=== PATIENT | female | born 1950 | race Caucasian/White ===

== ENCOUNTER → 2023-08-14 07:21 | Outpatient (REF) | payer MEDICARE, SELFPAY | LOC: MRI 07:21 | PROVIDERS: ATTENDING PHYSICIAN Psychiatry & Neurology Neurology; FAMILY PHYSICIAN Internal Medicine | DX: R41.0 Disorientation, unspecified (principal); Z86.73 Personal history of transient ischemic attack (TIA), and cerebral infarction without residual deficits | CPT/HCPCS: 70553; A9575 ==

== ENCOUNTER → 2023-09-25 10:46 | Outpatient (REF) | payer MEDICARE, SELFPAY ==
--- NOTE | 2023-09-25 12:58 | EEG.RPT ---
Electroencephalogram Report
Recording
Date of EE09/25/23
Type of EEG: Routine
Length of EEG recordin minutes
Done with Video Recording: Yes
Patient Status: Outpatient
Recording Conditions: Awake, Drowsy and Asleep
Hyperventilation Performed: No
Photic Stimulation Performed: Yes
Report
GREATER THAN 1 HOUR EEG REPORT
EEG INTERPRETATION:
Unremarkable EEG for age
CLINICAL CORRELATION:
A normal EEG does not rule out a diagnosis of epilepsy. If clinical suspicion for seizure persists, a prolonged recording may be warranted.
Clinical correlation is advised.
METHODS:
A 21 channel digitized electroencephalogram (EEG) was performed in the [facility]. The 10/20 international system of electrode placement was used with ECG and lateral/vertical eye movements recorded. Persyst quantitative EEG
analysis was performed.
ELECTROENCEPHALOGRAPHER IMPRESSION(S):
Quality of study
Good
Background
Unremarkable, well maintained, medium amplitude alpha-frequency and unremarkable anterior-posterior voltage gradient
With eye opening the background activity changed to a low voltage mixture of frequencies.
Sleep
Drowsiness present
Stage 1 sleep briefly demonstrated
Hyperventilation
Did not activate the record
Photic Stimulation
Did not activate the record
ECG
Normal sinus rhythm
== END ==
LOC: RCS 10:46
PROVIDERS: ATTENDING PHYSICIAN Psychiatry & Neurology Neurology; FAMILY PHYSICIAN Internal Medicine
DX: R41.0 Disorientation, unspecified (principal)
CPT/HCPCS: 95813

== ENCOUNTER → 2024-01-31 12:53 | Outpatient (REF) | payer MEDICARE, SELFPAY | LOC: WDC 12:53 | PROVIDERS: ATTENDING PHYSICIAN Obstetrics & Gynecology; FAMILY PHYSICIAN Internal Medicine | DX: Z12.31 Encounter for screening mammogram for malignant neoplasm of breast (principal) | CPT/HCPCS: 77063; 77067 ==

== ENCOUNTER → 2024-07-08 06:17 | Day surgery (SDC) | payer MEDICARE, SELFPAY | LOC: GI 06:17 | PROVIDERS: ATTENDING PHYSICIAN Internal Medicine Gastroenterology | PROC: 0DBM8ZX Excision of Descending Colon, Via Natural or Artificial Opening Endoscopic, Diagnostic (ICD-10-PCS; 2024-07-08) | PROC: 0DJ08ZZ Inspection of Upper Intestinal Tract, Via Natural or Artificial Opening Endoscopic (ICD-10-PCS; 2024-07-08) | DX: Z12.11 Encounter for screening for malignant neoplasm of colon (principal); D12.4 Benign neoplasm of descending colon; Z86.0100 Personal history of colon polyps, unspecified; Z85.048 Personal history of other malignant neoplasm of rectum, rectosigmoid junction, and anus; K57.30 Diverticulosis of large intestine without perforation or abscess without bleeding; K21.00 Gastro-esophageal reflux disease with esophagitis, without bleeding; K22.2 Esophageal obstruction; K44.9 Diaphragmatic hernia without obstruction or gangrene | CPT/HCPCS: 45380; 43235; 88305 ==

== ENCOUNTER 2024-10-06 11:03 | Emergency (ER) | payer MEDICARE, SELFPAY ==
[2024-10-06 11:06] VITALS: BP 128/69
[2024-10-06 11:43] VITALS: BMI 26.8
--- NOTE | 2024-10-06 12:24 | EDRN ---
Galileo ANDERSON in room w/ pt
--- NOTE | 2024-10-06 12:30 | ED.GENMED ---
History of Present Illness
General
Chief Complaint: Musculo-Skeletal Complaint
Source: patient
Exam Limitations: none
Time Seen by Provider: 10/06/24 12:17
History of Present Illness
History of Present Illness:
74yoF with a history of hyperlipidemia, prior L hip fracture s/p nail in 2013, and L knee replacement presenting for evaluation of left hip pain. Pain radiates to the lateral thigh and she states the area appears swollen. Symptoms began about 2
weeks ago. She reports wearing an orthotic in her R shoe and started having pain in her left hip shortly afterwards. She denies any trauma or other inciting incidents. Pain is worse with weight bearing. She was seen at urgent care a week and had
x-rays which were reportedly normal. She was started on a course of prednisone which she finished without any relief. She denies any fevers, calf pain, paresthesias.
Past History
Past History
ED Past Medical History: GERD, Other (osteoporosis, DJD, rectal cancer, gastric ulcer), Other (TIA) and Other (Migraines)
Social History
Tobacco: Non-smoker
Personal:
Living: with family
Phy Exam
General Physical Exam
General Presentation: well appearing and no apparent distress
General Skin: warm and dry
General Habitus: normal
General Mental: alert
ENT Exam
ENT Exam: normocephalic
Neurological Exam
Neurological Exam: alert
[place] Coma Scale
Eye Opening: Spontaneous
Verbal Response: Oriented
Motor Response: Obeys Commands
GCS Total Score: 15
Musculoskeletal Exam
Musculoskeletal Exam: other (L hip: There does appear to be some soft tissue swelling in the lateral hip region. No tenderness to palpation. ROM is normal although flexion elicits pain. No calf tenderness, pitting edema, or clinical signs of DVT. 2+
DP pulse and sensation intact.)
Skin Exam
Skin Exam: normal color and warm/dry
Psychiatric Exam
Psychiatric Exam: normal mood/affect
Course
Orders/Labs/Results
Orders:
Orders
10/06/24 12:28
CT Pelvis W/o Iv Contrast Urgent
Comment:
Reason For Exam: L hip pain, swelling
CR Femur - Left Min 2 Vw Urgent
Comment:
Reason For Exam: pain
10/06/24 14:34
Basic Metabolic Panel Urgent
Complete Blood Count/With Diff Urgent
10/06/24 15:16
Ketorolac [Toradol] 15 mg IV NOW STA
Abnormal Lab Results
10/06/24
14:34
Abs Immat Gran (auto) 0.1 H 10^3/uL
(0-0.05)
Absolute Neuts (auto) 6.9 H 10^3/uL
(1.4-6.5)
Absolute Monos (auto) 1.2 H 10^3/uL
(0.1-0.6)
Immature Gran % 0.7 H %
(0-0.5)
Lymphocytes % 18.9 L %
(20.5-51.1)
Monocytes % 11.5 H %
(1.7-9.3)
BUN 27 H mg/dl
(7-17)
10/06/24 14:34
10/06/24 14:34
Vital Signs
Initial and Last Documented VS:
Initial Vital Signs
Temp Pulse Resp BP Pulse Ox
97.8 F 85 16 128/69 98
10/06/24 11:06 10/06/24 11:06 10/06/24 11:06 10/06/24 11:06 10/06/24 11:06
Last Documented Vital Signs
Temp Pulse Resp BP Pulse Ox
97.8 F 80 16 135/77 98
10/06/24 11:06 10/06/24 14:00 10/06/24 14:00 10/06/24 14:00 10/06/24 14:00
MDM/Problems Addressed
Differential Diagnosis Includes:
74yoF here with atraumatic L hip pain x 2 weeks. Also feels the area is swollen. Finished prednisone without relief. Prior hx of L hip fracture with nail placement in 2013. VSS. She is well appearing in no distress. There does appear to be some soft
tissue swelling laterally. LLE is neurovascularly intact. Differential diagnosis includes but is not limited to: bursitis, effusion, fracture, osteoarthritis, no clinical signs of DVT
Initial ED plan: Check femur x-rays and CT pelvis.
*Critical Care Note
Total Time (30-74mins, 75-104mins- exclusive of procedures): Not Applicable
Update Note
Update Note:
CT shows probable reactive sterile fluid collection adjacent to the left hip measuring 7.1 x 6.2 x 8.4 cm. Labs added and white count is normal. There is no overlying erythema, warmth, or fluctuance so low clinical suspicion for infection. Advised
naproxen BID and close f/u with orthopedics. ED return precautions reviewed including fevers. Patient in agreement with plan and was discharged in stable condition.
ED Attending Note
-
Portions of this chart may have been created with voice recognition software.� Occasional wrong word or��sound alike� substitutions may have occurred due to the inherent limitations of voice recognition software.
Discharge Plan
Departure
Patient Disposition: Home (Routine Discharge)
Date of Disposition: 10/06/24
Time of Disposition: 15:16
Patient with high blood pressure during this ER visit?: No
Discharge Problem:
Acute pain of left hip
Instructions: Hip pain in adults
Prescriptions:
No Action
nadolol [Corgard] 20 MG tablet
20 mg PO .EVERYOTHERDAY
Patient Comments:
pt took only 10 mg last night
calcium carbonate [calcium] 500 MG tablet
1,500 mg PO DAILY
ascorbic acid (vitamin C) [Vitamin C] 500 MG tablet
500 mg PO DAILY
duloxetine 20 MG capsule,delayed release(DR/EC)
40 mg PO HS
cholecalciferol (vitamin D3) 1,000 UNITS tablet
1,000 units PO DAILY
aspirin 81 MG tablet,chewable
81 mg PO DAILY
atorvastatin 40 MG tablet
40 mg PO QPM
bupropion HCl 150 MG tablet extended release 24 hr
150 mg PO DAILY
pantoprazole [Protonix] 20 MG tablet,delayed release (DR/EC)
40 mg PO DAILY AT 0700 30 Days Qty: 30 0RF
Referrals:
Kenia Lundberg MD [Family Provider] -
Peter Carrasco MD [Active] -
Activity Restrictions/Additional Instructions:
Take 2 Aleve twice a day as needed for pain.
Please call tomorrow to schedule a follow-up with orthopedics. Return to the ER with any worsening symptoms including fevers.
Interventions
Interventions:
*Risk Screen - Suicide Last Done: 10/06/24 11:06
*General Assessment Last Done: 10/06/24 11:44
*Neglect/Abuse Screening Last Done: 10/06/24 11:06
*ED- Fall Risk Assessment Last Done: 10/06/24 11:44
*ED COVID-19 Vaccine History Last Done: 10/06/24 11:44
*Nursing Disposition Last Done: 10/06/24 15:33
ED-Musculoskeletal Assessment Last Done: 10/06/24 11:46
Discharge Date and Time
Discharge Date/Time: 10/06/24 15:34
Print Language: PANAMANIAN
[2024-10-06 12:32] VITALS: BP 118/75
--- NOTE | 2024-10-06 13:50 | EDRN ---
Pt to BR in w/c at this time w/ assist on and off toilet.
[2024-10-06 14:00] VITALS: BP 135/77
--- NOTE | 2024-10-06 14:24 | EDRN ---
Galileo ANDERSON in room w/pt.
--- NOTE | 2024-10-06 14:36 | EDRN ---
Labs drawn and sent to lab at this time.
[2024-10-06 14:48] LABS: % Basophils 0.4 % (0-2); % Immature Granulocytes 0.7 % (0-0.5); % Lymphocytes 18.9 % (20.5-51.1); % Monocytes 11.5 % (1.7-9.3); % Neutrophils 65.5 % (42.2-75.2); Absolute Eosinophils 0.3 10^3/uL (0-0.7); Absolute Immature Granulocytes 0.1 10^3/uL (0-0.05); Absolute Monocytes 1.2 10^3/uL (0.1-0.6); Absolute Neutrophils 6.9 10^3/uL (1.4-6.5); Hematocrit 39.6 % (37.0-47.0); Hemoglobin 13.4 g/dL (12.0-16.0); Mean Corp Hgb Conc. 33.8 g/dL (33.0-37.0); Mean Corpuscular Volume 88.8 fL (81.0-99.0); Mean Platelet Volume 9.4 fL (7.4-10.4); Nucleated Red Blood Cells % 0 %; Platelet Count 231 10^3/uL (130-400); Red Blood Cell Count 4.46 10^6/uL (4.20-5.40); Red Cell Dist. Width 14.2 % (11.5-14.5); White Blood Cell Count 10.5 10^3/uL (4.8-10.8)
[2024-10-06 15:01] LABS: Blood Urea Nitrogen 27 mg/dl (7-17); Calcium 8.4 mg/dl (8.4-10.2); Carbon Dioxide 24 mmol/L (22-30); Chloride 105 mmol/L (98-107); Estimated Creatinine Clearance 43 ml/min; Glucose 80 mg/dl (70-99); Potassium 3.8 mmol/L (3.5-5.1); Sodium 137 mmol/L (135-145); eGFR 59.49
[2024-10-06] MEDS: TORADOL 15 MG IV (15:20)
== END 2024-10-06 15:34 | disposition home or self-care (01) ==
LOC: EMR 11:03
PROVIDERS: Physician Assistant; EMERGENCY PHYSICIAN Emergency Medicine; FAMILY PHYSICIAN Internal Medicine
DX: M25.552 Pain in left hip (principal); E78.5 Hyperlipidemia, unspecified; M81.0 Age-related osteoporosis without current pathological fracture; Z85.048 Personal history of other malignant neoplasm of rectum, rectosigmoid junction, and anus; Z86.73 Personal history of transient ischemic attack (TIA), and cerebral infarction without residual deficits; Z87.11 Personal history of peptic ulcer disease; Z96.652 Presence of left artificial knee joint; Z87.81 Personal history of (healed) traumatic fracture
CPT/HCPCS: 96374; 99284; 72192; 73552; 80048; 85025

== ENCOUNTER → 2024-10-10 13:06 | Outpatient (REF) | payer MEDICARE, SELFPAY ==
[2024-10-10 13:37] VITALS: BP 109/70; BP_SYST 86
[2024-10-10] MEDS: TYLENOL 1000 MG PO (14:03)
[2024-10-10 14:36] VITALS: BP 126/73; BP_SYST 80
== END ==
LOC: RADI 13:06
PROVIDERS: ATTENDING PHYSICIAN Physician Assistant; FAMILY PHYSICIAN Internal Medicine
DX: M79.605 Pain in left leg (principal)
CPT/HCPCS: 20611; 87015; 87070; 87205

== ENCOUNTER 2024-10-14 09:19 | Inpatient (IN) | payer MEDICARE, SELFPAY ==
[2024-10-11 11:54] VITALS: BP 129/95
[2024-10-11 12:39] VITALS: BMI 24.3
[2024-10-11 13:33] LABS: % Basophils 0.1 % (0-2); % Immature Granulocytes 0.7 % (0-0.5); % Monocytes 3.2 % (1.7-9.3); Absolute Immature Granulocytes 0.1 10^3/uL (0-0.05); Absolute Lymphocytes 0.6 10^3/uL (1.2-3.4); Absolute Monocytes 0.5 10^3/uL (0.1-0.6); Absolute Neutrophils 13.6 10^3/uL (1.4-6.5); Hematocrit 40.7 % (37.0-47.0); Hemoglobin 13.6 g/dL (12.0-16.0); Mean Corp Hgb Conc. 33.4 g/dL (33.0-37.0); Mean Corpuscular Hgb 29.6 pg (27.0-31.0); Mean Corpuscular Volume 88.7 fL (81.0-99.0); Nucleated Red Blood Cells % 0 %; Platelet Count 255 10^3/uL (130-400); Red Blood Cell Count 4.59 10^6/uL (4.20-5.40); Red Cell Dist. Width 14.5 % (11.5-14.5); White Blood Cell Count 14.8 10^3/uL (4.8-10.8)
[2024-10-11 13:51] LABS: ALT (SGPT) 16 U/L (0-35); AST (SGOT) 23 U/L (14-36); Albumin 3.6 g/dl (3.5-5.0); Alkaline Phosphatase 77 U/L (38-126); Blood Urea Nitrogen 21 mg/dl (7-17); Calcium 8.8 mg/dl (8.4-10.2); Carbon Dioxide 25 mmol/L (22-30); Chloride 108 mmol/L (98-107); Estimated Creatinine Clearance 47 ml/min; Glucose 112 mg/dl (70-99); Potassium 4.5 mmol/L (3.5-5.1); Sodium 138 mmol/L (135-145); Total Bilirubin 0.6 mg/dl (0.2-1.3); Total Protein 6.6 g/dl (6.3-8.2); eGFR > 60.00
[2024-10-11 13:56] LABS: Erythrocyte Sed Rate 29 mm/hour (0-20)
[2024-10-11] MEDS: DILAUDID 1 MG IV (13:57)
[2024-10-11 14:01] VITALS: BP 135/73
--- NOTE | 2024-10-11 14:57 | ED.GENMED ---
History of Present Illness
General
Chief Complaint: Musculo-Skeletal Complaint
Source: patient and spouse
Exam Limitations: none
Time Seen by Provider: 10/11/24 12:15
Nursing documentation reviewed up to this point in time: agreed with
History of Present Illness
History of Present Illness:
74-year-old female past medical history of previous stomach ulcers, GERD previous stroke presenting to the emergency department today with concerns of left-sided hip discomfort that has become very severe today. Was recently diagnosed with a fluid
collection to previous surgical site of her left leg was seen by interventional radiology and had this drained yesterday. Initially felt well but this morning with worsening pain. Pain is severe enough that she had difficulty ambulating and moving
at all from the left hip. Denies any fevers or systemic symptoms. She has been on steroids without relief
Past History
Past History
ED Past Medical History: GERD, Other (osteoporosis, DJD, rectal cancer, gastric ulcer), Other (TIA) and Other (Migraines)
Social History
Tobacco: Non-smoker
Personal:
Living: with family
Review of Systems
Review of Systems
Allergies reviewed?: Yes
All Other Systems: ROS reviewed and negative except as documented in HPI and ROS
Phy Exam
Physical Exam
Physical Exam:
GENERAL: Alert , in no apparent distress
EYE: pupils equal and reactive
NECK: Supple, no significant adenopathy.
ENT: o/p clr, mmm.
CARDIAC: Regular rate and rhythm .
LUNGS: Clear breath sounds bilaterally, no acute respiratory distress, no wheezes/rales/rhonchi
ABDOMEN: Soft, without focal tenderness, no r/g, no cvat
NEUROLOGICAL: Alert and oriented, no focal neuro deficits
SKIN: Warm and dry, skin intact.
MUSCULOSKELETAL: Significant discomfort to the left hip when trying to move. No redness or warmth no tenderness to palpation no edema, well perfused.
PSYCH: Normal and appropriate interaction.
Course
Orders/Labs/Results
Orders:
Orders
10/11/24 12:13
HYDROmorphone [Dilaudid] 1 mg IV NOW STA
10/11/24 12:43
CBC/With Diff [Complete Blood Count/With Diff] Urgent
CMP [Comprehensive Metabolic Panel] Urgent
CRP [C-Reactive Protein] Urgent
ESR [Erythrocyte Sed Rate] Urgent
Lactic Acid Urgent
Abnormal Lab Results
10/11/24
12:43
WBC 14.8 H 10^3/uL
(4.8-10.8)
Abs Immat Gran (auto) 0.1 H 10^3/uL
(0-0.05)
Absolute Neuts (auto) 13.6 H 10^3/uL
(1.4-6.5)
Absolute Lymphs (auto) 0.6 L 10^3/uL
(1.2-3.4)
Immature Gran % 0.7 H %
(0-0.5)
Neutrophils % 92.0 H %
(42.2-75.2)
Lymphocytes % 4.0 L %
(20.5-51.1)
ESR 29 H mm/hour
(0-20)
Chloride 108 H mmol/L
(98-107)
BUN 21 H mg/dl
(7-17)
Glucose 112 H mg/dl
(70-99)
C-Reactive Protein 14.80 H mg/L
(0.0-10.00)
10/11/24 12:43
10/11/24 12:43
Vital Signs
Initial and Last Documented VS:
Initial Vital Signs
Temp Pulse Resp BP Pulse Ox
97.9 F 83 18 129/95 99
10/11/24 11:54 10/11/24 11:54 10/11/24 11:54 10/11/24 11:54 10/11/24 11:54
Last Documented Vital Signs
Temp Pulse Resp BP Pulse Ox
97.9 F 75 17 135/73 95
10/11/24 11:54 10/11/24 14:01 10/11/24 14:01 10/11/24 14:01 10/11/24 14:01
MDM/Problems Addressed
MDM/Problems Addressed:
74-year-old female presenting to the emergency department today with concerns of left hip pain becoming severe today. Vital signs normal. White count of 14.8 though the patient is on steroids unclear if this could represent acute infection or just
secondary to steroid use otherwise no specific findings on exam other than elevated inflammatory markers. Plan to admit for Ortho consultation. Patient requiring IV pain medications.
*Critical Care Note
Total Time (30-74mins, 75-104mins- exclusive of procedures): Not Applicable
ED Attending Note
-
Portions of this chart may have been created with voice recognition software.� Occasional wrong word or��sound alike� substitutions may have occurred due to the inherent limitations of voice recognition software.
Discharge Plan
Departure
Patient Disposition: Admit
Date of Disposition: 10/11/24
Time of Disposition: 15:02
Admit to: Med/Surg
Admit to doctor: Ana
Presentation/result/management discussed w/ accepting MD/DO: Hospitalist
Patient with high blood pressure during this ER visit?: No
Condition: Good
Covid-19: Not Applicable
Discharge Problem:
Acute hip pain
Prescriptions:
No Action
nadolol [Corgard] 20 MG tablet
20 mg PO .EVERYOTHERDAY
Patient Comments:
pt took only 10 mg last night
calcium carbonate [calcium] 500 MG tablet
1,500 mg PO DAILY
ascorbic acid (vitamin C) [Vitamin C] 500 MG tablet
500 mg PO DAILY
duloxetine 20 MG capsule,delayed release(DR/EC)
40 mg PO HS
cholecalciferol (vitamin D3) 1,000 UNITS tablet
1,000 units PO DAILY
aspirin 81 MG tablet,chewable
81 mg PO DAILY
atorvastatin 40 MG tablet
40 mg PO QPM
bupropion HCl 150 MG tablet extended release 24 hr
150 mg PO DAILY
pantoprazole [Protonix] 20 MG tablet,delayed release (DR/EC)
40 mg PO DAILY AT 0700 30 Days Qty: 30 0RF
Referrals:
Kenia Lundberg MD [Family Provider] -
Interventions
Interventions:
*Risk Screen - Suicide Last Done: 10/11/24 11:54
*General Assessment Last Done: 10/11/24 11:54
*Neglect/Abuse Screening Last Done: 10/11/24 11:54
*ED- Fall Risk Assessment Last Done: 10/11/24 11:54
*ED COVID-19 Vaccine History Last Done: 10/11/24 11:54
ED-Musculoskeletal Assessment Last Done: 10/11/24 14:01
Discharge Date and Time
Print Language: URUGUAYAN
--- NOTE | 2024-10-11 15:51 | HPS.HSE ---
Family Physician
-
Family Physician: Kenia Lundberg
Chief Complaint
-
Left Hip Pain
History of Present Illness
Patient is a 74 y/o female past medical history of prior stroke, anxiety/depression, osteoporosis with prior bilateral femur fractures with hardware who presents with left hip pain. Patient reports ongoing left pain for the past several week. She
completed a Medrol Dose Pack in early September. Afterwards she was in the ED on October 06 at which time she was found to have an extra-articular fluid collection. She underwent drainage of the fluid collection IR yesterday. Fluid culture was sent with
no growth at present time. Patient continues with significant left hip pain with inability to ambulate due to the pain. She denies fevers, sweats or chills.
Medical History
Past Medical History
Past Medical History: Reports Other
Additional Past Medical History:
Left Basal Ganglia Capsular Lacunar Infarct
Anxiety / Depression
Migraine Headache
Hyperlipidemia
GERD/PUD
Osteoporosis
Rectal Cancer s/p Resection, Chemo/Radiation
Past Surgical History: Reports Other
Additional Past Surgical History:
Bilateral Femur Fracture Repair
Left Knee Replacement
Right Rotator Cuff Repair
Resection Rectal Cancer
Social History
Tobacco: Non-smoker
Alcohol: Occasional
Personal:
Living: With Family
Family History
Family History: Not pertinent
Allergies / Home Medications
Allergies reflects when Allergies were last updated in [facility].
Home Medications with original date entered in [facility]
Allergy/Medication List:
Allergies
Allergy/AdvReac Type Severity Reaction Status Date / Time
No Known Allergies Allergy Verified 10/06/24 11:09
Home Medications
ascorbic acid (vitamin C) 500 mg tablet (Vitamin C) 500 mg PO DAILY Supplement 12/24/13
cholecalciferol (vitamin D3) 25 mcg (1,000 unit) tablet 1,000 units PO DAILY Supplement 12/24/13
aspirin 81 mg chewable tablet 81 mg PO DAILY Blood clot prevention/tx 03/08/20
atorvastatin 40 mg tablet 40 mg PO QPM High cholesterol 03/08/20
Lactobac no.2-Bifidobac no.1-S. thermo 112.5 billion cell capsule (Visbiome) 1 cap PO DAILY 10/11/24
acetaminophen 500 mg tablet (Tylenol Extra Strength) 1,000 mg PO Q6HPRN PRN mild pain 10/11/24
bupropion HCl 300 mg 24 hr tablet, extended release (Wellbutrin XL) 300 mg PO DAILY 10/11/24
calcium carbonate 500 mg PO DAILY 10/11/24
duloxetine 30 mg capsule,delayed release (Cymbalta) 30 mg PO HS 10/11/24
omeprazole 20 mg tablet,delayed release 40 mg PO HS 10/11/24
prednisone 10 mg tablet 40 mg PO DIRECTED 10/11/24
Review of Systems
-
History Source: Patient
A 12 point ROS was completed and negative except as noted: Yes
Constitutional: Denies Fever or Chills
Respiratory: Denies Cough or Trouble Breathing
Cardiac: Denies Chest Pain or Palpitations
Abdomen/GI: Denies Abdominal Pain, Nausea, Vomiting, Diarrhea or Constipated
Musculoskeletal: Reports See HPI
Physical Exam
Vital Signs
Vital Signs
Temp Pulse Resp BP Pulse Ox
97.9 F 75 17 135/73 95
10/11/24 11:54 10/11/24 14:01 10/11/24 14:01 10/11/24 14:01 10/11/24 14:01
Physical Exam
General: Well Developed, Well Nourished and No Apparent Distress
HEENT: NormoCephalic, Anicteric, Moist mucous membranes and Atraumatic
Respiratory: Clear and Non Labored Respirations; No Wheezes, Rales or Rhonchi
Cardiac: S1/S2 and Regular Rhythm; No Murmur
GI: Soft, Non Tender, Non Distended and Normal Bowel Sounds
Rectal: Deferred by Provider
Musculoskeletal: No Clubbing, No Cyanosis and Other (Trace edema left lower extremity; Decreased range of motion due to pain)
Skin: Warm and Dry; No Rash
Neuro: Awake, Alert, Oriented and Nonfocal/grossly intact
Psych: Calm
Laboratory Results
-
10/11/24 12:43
10/11/24 12:43
Laboratory Results
Lactic Acid 1.0 mmol/L (0.7-2.0) 10/11/24 12:43
Total Bilirubin 0.6 mg/dl (0.2-1.3) 10/11/24 12:43
AST 23 U/L (14-36) 10/11/24 12:43
ALT 16 U/L (0-35) 10/11/24 12:43
Alkaline Phosphatase 77 U/L (38-126) 10/11/24 12:43
Data Reviewed
-
Lab Data: Labs Reviewed by me
Old Records: Reviewed
Impression/Plan
-
Left Hip Pain with Ambulatory Dysfunction
-Consult Orthopedics
-Consult PT/OT
-Check Hip MRI
-Check Peripheral Vascular US
Hx Left Basal Ganglia Capsular Lacunar Infarct
-Continue Aspirin
-Hyperlipidemia
-Continue atorvastatin
Anxiety / Depression
-Continue duloxetine and Wellbutrin
GERD/PUD
-Continue Protonix
DVT proph: SCDs if US negative for DVT
Code Status: Full Code
--- NOTE | 2024-10-11 15:53 | W.PN.UPDATE ---
Addendum entered and electronically signed by Tamiko Perez MD 10/11/24 16:23:
Stop prednisone.
Original Note:
Update Note
Progress Note Update
This is an addendum to the H&P written by Debbie De 10/11/2024.� Patient seen examined independently with PA.
74-year-old female past medical history of bilateral femur fractures status post rods in 2013, rectal cancer, gastric ulcer, GERD, osteoporosis, TIA, migraines, anxiety/depression, presenting for left hip pain and ambulatory dysfunction.
She was here on 10/06 for left hip pain and found to have fluid collection adjacent to the left hip.� She underwent IR drainage of extra-articular fluid yesterday.� Pain is not improved.� Culture was negative.
She completed Medrol Dosepak on 09/29 and started prednisone taper on 10/08.
Vital signs normal.� Labs show leukocytosis.� CRP of 14.
Unclear etiology of left hip pain.� Fluid collection concerning for potential underlying hardware infection although fluid culture negative.
Orthopedics consulted and recommended MRI.� Venous ultrasound also pending.� Dilaudid for pain.
Leukocytosis likely from steroids.
[2024-10-11 17:07] VITALS: BP 133/61
--- NOTE | 2024-10-11 18:01 | PTCARENOTE ---
Received pt from ED via stretcher. AAOx3. Stretcher placed next to bed, pt able to slide over to bed independently. Pt c/o L hip pain, unable to bear weight on LLE. Assessed and oriented to room. Pt verbalized understanding of call baird. Call baird
within close reach. Will continue to monitor.
[2024-10-11 18:10] VITALS: BP 141/74
[2024-10-11] MEDS: TYLENOL 1000 MG PO (18:29)
[2024-10-11] MEDS: LIPITOR 40 MG PO (18:39)
[2024-10-11] MEDS: DILAUDID 0.25 MG IV ×2 (20:14→22:38)
[2024-10-11] MEDS: PROTONIX 40 MG PO (20:14)
[2024-10-11] MEDS: CYMBALTA DELAYED RELEASE 30 MG PO (20:14)
[2024-10-11 23:56] VITALS: BP 122/70
[2024-10-12] MEDS: DILAUDID 0.25 MG IV (04:07)
[2024-10-12] MEDS: TYLENOL 1000 MG PO ×3 (05:48→20:32)
[2024-10-12 07:00] LABS: Hematocrit 35.4 % (37.0-47.0); Hemoglobin 11.8 g/dL (12.0-16.0); Mean Corp Hgb Conc. 33.3 g/dL (33.0-37.0); Mean Corpuscular Hgb 29.2 pg (27.0-31.0); Mean Corpuscular Volume 87.6 fL (81.0-99.0); Mean Platelet Volume 9.1 fL (7.4-10.4); Platelet Count 257 10^3/uL (130-400); Red Blood Cell Count 4.04 10^6/uL (4.20-5.40); Red Cell Dist. Width 14.2 % (11.5-14.5)
[2024-10-12] MEDS: DILAUDID 0.5 MG IV ×2 (07:19→16:19)
[2024-10-12 07:23] LABS: Blood Urea Nitrogen 17 mg/dl (7-17); Calcium 8.6 mg/dl (8.4-10.2); Carbon Dioxide 27 mmol/L (22-30); Chloride 108 mmol/L (98-107); Estimated Creatinine Clearance 54 ml/min; Glucose 73 mg/dl (70-99); Potassium 3.9 mmol/L (3.5-5.1); Sodium 138 mmol/L (135-145); eGFR > 60.00
[2024-10-12 07:30] VITALS: BP 129/81
[2024-10-12] MEDS: LOW STRENGTH ASPIRIN 81 MG PO (08:37)
[2024-10-12] MEDS: VITAMIN C 500 MG PO (08:37)
[2024-10-12] MEDS: WELLBUTRIN XL (24 hour extended release) 150 MG PO (08:37)
[2024-10-12] MEDS: VISBIOME 1 CAP PO (08:37)
--- NOTE | 2024-10-12 09:45 | W.PN.UPDATE ---
Update Note
Progress Note Update
Full orthopedic consult dictated: Patient seen with Dr. Gutiérrez
Dx: Status post left hip gamma nail with advanced left hip osteoarthritis and left lateral hip pain
Plan: Patient has undergone left hip gamma nail under direction of Dr. Carrasco years ago. There has been progression of her hip osteoarthritis and there is also concerns that the hip screw may be penetrating the femoral head. She has been
experiencing significant swelling which underwent aspiration and thus far has been negative for infection. She is scheduled to undergo MRI to evaluate the hip. Defer weightbearing for now, conservative treatment for pain control and orthopedics to
follow-up once MRI completed.
--- NOTE | 2024-10-12 10:20 | W.PN.HOSP.TC ---
Today's Communication/Plan
-
Await MRI
Stop IV Dilaudid
Oxycodone as needed
Add Lovenox
Bowel regimen
Assessment / Plan
Assessment / Plan
Gen-AAOx3, NAD
HEENT-NC, AT, anicteric, clear oral mm
Neck-supple
CV-reg, no M, +S1/S2
Lungs-clear B/L
Abd-soft, NT, ND
Ext-no edema
Musculoskeletal-no cyanosis, clubbing
Skin-warm and dry
Neuro-grossly non-focal
Psych-calm, cooperative
Intractable left hip pain -suspect mechanical etiology. Her pain started 3 weeks ago when she used an orthotic in the right shoe but not the left. She subsequently went for a 2.5 mile walk and then developed severe left sided hip pain. Pain did
not improve with trial of steroids prior to admission.
Doubt we will find infection.
Left hip fluid collection noted on CT, MRI pending.
She underwent left hip fluid aspiration by IR on October 10, 105 cc of thin yellow fluid removed. Culture negative. Fluid collection was located lateral to the proximal left femur, up to 8.4 cm in diameter.
Will change IV Dilaudid to oxycodone as needed.
PT/OT when allowed to weight-bear.
Leukocytosis noted and suspect due to steroids.
History of stroke
Hyperlipidemia -atorvastatin.
Osteoporosis
GERD/peptic ulcer disease
Migraine headaches
Hx of rectal cancer
Full code
Anticipated Discharge: 24 - 48 hours
Subjective/Interval History
-
Date of Service: October 12, 2024
Patient seen and examined. Complaining of left lateral hip pain.
Objective Data
-
Labs:
Laboratory Results
10/12/24
06:17
WBC 11.0 H
Hgb 11.8 L
Hct 35.4 L
Plt Count 257
Sodium 138
Potassium 3.9
Chloride 108 H
Carbon Dioxide 27
BUN 17
Creatinine 0.7
Glucose 73
Calcium 8.6
Vital Signs:
Vital Signs
Temp Pulse Resp BP Pulse Ox
97.7 F 72 16 129/81 98
10/12/24 07:30 10/12/24 07:30 10/12/24 07:30 10/12/24 07:30 10/12/24 07:30
Review of Systems
-
History Source: Patient
All other systems: Reviewed and negative
[2024-10-12] MEDS: MIRALAX 17 GRAMS PO (11:37)
[2024-10-12] MEDS: ROXICODONE 5 MG PO (11:41)
[2024-10-12] MEDS: TORADOL 15 MG IV ×2 (15:07→22:32)
[2024-10-12 15:13] VITALS: BP 124/70
--- NOTE | 2024-10-12 16:34 | PTCARENOTE ---
Pt is alert and oriented x3. Pt complaining of frequent L hip pain, pain medication given per MAR with little to no releif. Dr. Cabral aware, one time order for dilaudid ordered and administered per JUL. Pt is an assist x1 OOB NWB L leg. Assists
self on and off the commode. VSS. Pt makes needs known. All needs are meet at this time. Call baird is within reach.
[2024-10-12] MEDS: LIPITOR 40 MG PO (17:08)
[2024-10-12] MEDS: LOVENOX 40 MG SC (17:09)
[2024-10-12] MEDS: ROXICODONE 10 MG PO (20:26)
[2024-10-12] MEDS: CYMBALTA DELAYED RELEASE 30 MG PO (20:27)
[2024-10-12] MEDS: PROTONIX 40 MG PO (20:27)
[2024-10-12 23:00] VITALS: BP 98/56
[2024-10-13] MEDS: ROXICODONE 10 MG PO ×5 (03:54→21:37)
[2024-10-13] MEDS: TYLENOL 1000 MG PO ×3 (03:54→18:41)
[2024-10-13 07:22] VITALS: BP 118/68
[2024-10-13] MEDS: TORADOL 15 MG IV ×3 (08:11→23:57)
[2024-10-13] MEDS: FLUSH (NSS) 2 FLUSH IV (08:12)
[2024-10-13] MEDS: MIRALAX PO (08:13)
[2024-10-13] MEDS: VISBIOME 1 CAP PO (08:13)
[2024-10-13] MEDS: WELLBUTRIN XL (24 hour extended release) 150 MG PO (08:13)
[2024-10-13] MEDS: VITAMIN C PO ×2 (08:13→12:28)
[2024-10-13] MEDS: LOW STRENGTH ASPIRIN 81 MG PO (08:13)
--- NOTE | 2024-10-13 09:39 | W.PN.HOSP.TC ---
Today's Communication/Plan
-
Continue analgesics
PT/OT
MRI
Assessment / Plan
Assessment / Plan
Gen-AAOx3, NAD
HEENT-NC, AT, anicteric, clear oral mm
Neck-supple
CV-reg, no M, +S1/S2
Lungs-clear B/L
Abd-soft, NT, ND
Ext-left lateral hip edema
Musculoskeletal-no cyanosis, clubbing
Skin-warm and dry
Neuro-grossly non-focal
Psych-calm, cooperative
Intractable left hip pain -suspect mechanical etiology. Her pain started 3 weeks ago when she used an orthotic in the right shoe but not the left. She subsequently went for a 2.5 mile walk and then developed severe left sided hip pain. Pain did
not improve with trial of steroids prior to admission.
Doubt we will find infection.
Left hip fluid collection noted on CT, MRI partial scan completed October 12 showing 6.8 x 5.9 cm fluid collection lateral to the left hip. She will go down today to complete the scan.
She underwent left hip fluid aspiration by IR on October 10, 105 cc of thin yellow fluid removed. Culture negative. Fluid collection was located lateral to the proximal left femur, up to 8.4 cm in diameter.
Will change IV Dilaudid to oxycodone as needed. IV Toradol as needed.
PT/OT when allowed to weight-bear.
Leukocytosis noted and suspect due to steroids.
History of stroke
Hyperlipidemia -atorvastatin.
Osteoporosis
GERD/peptic ulcer disease
Migraine headaches
Hx of rectal cancer
Full code
Anticipated Discharge: Within 24 hours
Subjective/Interval History
-
Date of Service: October 13, 2024
Patient seen and examined. Pain around the left hip somewhat better today.
Objective Data
-
Vital Signs:
Vital Signs
Temp Pulse Resp BP Pulse Ox
97.8 F 82 17 118/68 97
10/13/24 07:22 10/13/24 07:22 10/13/24 07:22 10/13/24 07:22 10/13/24 07:22
I&O
10/12/24 10/13/24 10/14/24
06:59 06:59 06:59
Intake Total 1140 / 1140
Balance 1140 / 1140
Review of Systems
-
History Source: Patient
All other systems: Reviewed and negative
--- NOTE | 2024-10-13 11:08 | W.PN.UPDATE ---
Update Note
Progress Note Update
Patient seen and examined this AM. MRI interrupted yesterday and not a full study. Patient complaining of left buttock and lateral hip pain. No fevers. Working with PT today. I explained that I am uncertain as to the etiology of her symptoms
and sterile fluid collections about the left proximal hip. Will discuss with our hip specialists. Infection seems unlikely with no growth from IR aspiration yielding 100 cc of fluid. Arthritis is present on the radiographs but not much fluid in
the joint unless it is draining through the caden itself. In addition, the tip of the screw is very close to the joint space and may be irritating the joint. Will follow up with the MRI tomorrow and consult with our hip specialists.
[2024-10-13 14:59] VITALS: BP 110/65
[2024-10-13] MEDS: LOVENOX 40 MG SC (17:07)
[2024-10-13] MEDS: LIPITOR 40 MG PO (17:07)
[2024-10-13] MEDS: PROTONIX 40 MG PO (21:37)
[2024-10-13] MEDS: CYMBALTA DELAYED RELEASE 30 MG PO (21:37)
[2024-10-13 23:00] VITALS: BP 111/60
[2024-10-14] MEDS: TYLENOL 1000 MG PO ×4 (01:40→23:41)
[2024-10-14] MEDS: ROXICODONE 10 MG PO ×5 (01:41→21:27)
[2024-10-14 07:05] VITALS: BP 105/51
--- NOTE | 2024-10-14 07:07 | W.PN.UPDATE ---
Update Note
Progress Note Update
Patient seen and examined. Afebrile. VSS. Continued complaints of left hip and buttock pain. MRI reviewed. Have spoken with Dr. Carrasco about the case. Etiology of symptoms felt to be secondary to OA of the left hip with fluid extravasating
from the femoral fixation. Tentative plan for removal of hardware left femur with possible THR by Dr. Carrasco on . Dr. Carrasco likely to discuss with the patient tomorrow. Have discussed current plan with the patient this AM.
[2024-10-14] MEDS: VISBIOME 1 CAP PO (08:26)
[2024-10-14] MEDS: WELLBUTRIN XL (24 hour extended release) 150 MG PO (08:26)
[2024-10-14] MEDS: TORADOL 15 MG IV ×3 (08:26→23:14)
[2024-10-14] MEDS: LOW STRENGTH ASPIRIN 81 MG PO (08:26)
[2024-10-14] MEDS: VITAMIN C 500 MG PO (08:26)
[2024-10-14] MEDS: MIRALAX PO (08:29)
--- NOTE | 2024-10-14 08:31 | W.PN.HOSP.TC ---
Today's Communication/Plan
-
Pain control. Preop tests.
Assessment / Plan
Assessment / Plan
Gen-AAOx3, NAD
HEENT-NC, AT, anicteric, clear oral mm
Neck-supple
CV-reg, no M, +S1/S2
Lungs-clear B/L
Abd-soft, NT, ND
Ext-left lateral hip edema
Musculoskeletal-no cyanosis, clubbing
Skin-warm and dry
Neuro-grossly non-focal
Psych-calm, cooperative
A/P:
Intractable left hip pain -felt to be due to osteoarthritis of the left hip with fluid extravasated from the femoral fixation-plan for removal of hardware of left femur with possible THR on Monday. Status post fluid drain no growth. Continue
pain control for now.
Leukocytosis-reactive.
Preop eval-she is asymptomatic but she is nonambulatory due to hip pain issues. Will get twelve-lead EKG and echocardiogram preop and some basic labs in am.
History of stroke-on aspirin statin
Hyperlipidemia -atorvastatin 40 mg p.o. every evening.
Osteoporosis-not contributing to her presentation.
GERD/peptic ulcer disease-on Protonix 40 mg p.o. every evening
Depression-continue Cymbalta 30 mg p.o. every evening and Wellbutrin 150 mg p.o. daily
Hx of rectal cancer
DVT prophylaxis-Lovenox SQ
CODE STATUS -full code
Total time spent on today's encounter was 52 minutes which included time spent in counseling the patient/family regarding diagnosis and treatment plan as listed above, goals of care, and symptom management. Case was discussed with nursing staff,
specialists, and care coordinators/case management. All labs and imaging personally reviewed by me. Remainder the time spent in detailed review of previous records, lab data, imaging, and other medical provider documentation.
Anticipated Discharge: > 48 hours
Subjective/Interval History
-
Date of Service: October 14, 2024
Patient continues to have left hip pain. Not much ambulatory due to the same issues of her hip. No chest pain or shortness of breath. Afebrile
Objective Data
-
Vital Signs:
Vital Signs
Temp Pulse Resp BP Pulse Ox
98.0 F 86 18 105/51 95
10/14/24 07:05 10/14/24 07:05 10/14/24 07:05 10/14/24 07:05 10/14/24 07:05
I&O
10/13/24 10/14/24 10/15/24
06:59 06:59 06:59
Intake Total 1140 / 1140 840 / 840 240 / 240
Balance 1140 / 1140 840 / 840 240 / 240
[2024-10-14 16:12] VITALS: BP 109/70
[2024-10-14] MEDS: LOVENOX 40 MG SC (17:05)
[2024-10-14] MEDS: LIPITOR 40 MG PO (17:05)
--- NOTE | 2024-10-14 17:24 | CM ---
Alert awake oriented patient who
lives with Ke in a 1 story home with 3 steps to enter. She is independent in activates of daily living.She does drive .Spoke with Ke her .
Had [facility] in past . [facility]
Pharmacy [facility]
PCP Dr Lundberg
PLAN Home with no needs
--- NOTE | 2024-10-14 17:29 | CM ---
Alert awake oriented patient who lives with Ke in a 1 story home with 3 steps to enter. She is independent in activates of daily living.She does drive .Spoke with Ke her .
Had [facility] in past . [facility]
Pharmacy [facility]
PCP Dr Lundberg
PLAN Home with no needs
[2024-10-14] MEDS: LIDOCAINE 4% PATCH 1 PATCH TOPICAL (20:19)
--- NOTE | 2024-10-14 21:20 | PTCARENOTE ---
Pt reports pain unrelieved pain in L hip/buttocks despite PRNs received (refer to MAR). [employer] covering house contacted, electronic orders received for lidocaine patch (refer to MAR) Pt updated on plan. Lido patch placed to L hip/buttocks. Call
oli w/in reach.
[2024-10-14] MEDS: CYMBALTA DELAYED RELEASE 30 MG PO (21:27)
[2024-10-14] MEDS: PROTONIX 40 MG PO (21:27)
[2024-10-14 23:25] VITALS: BP 98/62
[2024-10-15] MEDS: ROXICODONE 10 MG PO ×4 (02:06→21:52)
[2024-10-15 06:02] LABS: Hematocrit 32.9 % (37.0-47.0); Hemoglobin 11.1 g/dL (12.0-16.0); Mean Corp Hgb Conc. 33.7 g/dL (33.0-37.0); Mean Corpuscular Hgb 29.8 pg (27.0-31.0); Mean Corpuscular Volume 88.2 fL (81.0-99.0); Mean Platelet Volume 9.4 fL (7.4-10.4); Platelet Count 256 10^3/uL (130-400); Red Blood Cell Count 3.73 10^6/uL (4.20-5.40); Red Cell Dist. Width 14.1 % (11.5-14.5); White Blood Cell Count 15.1 10^3/uL (4.8-10.8)
[2024-10-15 06:07] LABS: Blood Urea Nitrogen 21 mg/dl (7-17); Calcium 8.1 mg/dl (8.4-10.2); Carbon Dioxide 26 mmol/L (22-30); Chloride 104 mmol/L (98-107); Estimated Creatinine Clearance 42 ml/min; Glucose 104 mg/dl (70-99); Potassium 4.1 mmol/L (3.5-5.1); Sodium 132 mmol/L (135-145); eGFR > 60.00
--- NOTE | 2024-10-15 07:05 | W.PN.UPDATE ---
Update Note
Progress Note Update
Patient seen and evaluated by Orthopedic surgery this morning. Plan for left hip/femur BREANNA with conversion to STACY Monday10/16/2024 under the direction of Dr. Carrasco. NPO pMN 10/15/2024. Consent in chart. Pre-op Ancef, Iodine Irrigation and TXA
Irrigation OCTOR. Type & Screen requested. Orthopedic surgery will continue to follow.
[2024-10-15] MEDS: MIRALAX PO (07:44)
[2024-10-15] MEDS: WELLBUTRIN XL (24 hour extended release) 150 MG PO (07:55)
[2024-10-15] MEDS: LOW STRENGTH ASPIRIN 81 MG PO (07:56)
[2024-10-15] MEDS: VITAMIN C 500 MG PO (07:56)
[2024-10-15] MEDS: VISBIOME 1 CAP PO (07:56)
[2024-10-15] MEDS: TYLENOL 1000 MG PO (07:56)
[2024-10-15 08:17] VITALS: BP 130/74
[2024-10-15] MEDS: DILAUDID 0.5 MG IV (10:52)
--- NOTE | 2024-10-15 12:47 | W.PN.HOSP.TC ---
Today's Communication/Plan
-
Pain control. Hip surgery tomorrow
Assessment / Plan
Assessment / Plan
Gen-AAOx3, NAD
HEENT-NC, AT, anicteric, clear oral mm
Neck-supple
CV-reg, no M, +S1/S2
Lungs-clear B/L
Abd-soft, NT, ND
Ext-left lateral hip edema
Musculoskeletal-no cyanosis, clubbing
Skin-warm and dry
Neuro-grossly non-focal
Psych-calm, cooperative
A/P:
Intractable left hip pain -felt to be due to osteoarthritis of the left hip with fluid extravasated from the femoral fixation-left hip/femur BREANNA with conversion to STACY Monday 10/16. Status post fluid drain no growth. Continue pain control but
adjust medication for better pain control, . Discussed with at bedside.
Leukocytosis-likely reactive but check a chest x-ray and UA to rule out infectious etiology.
Preop eval-she is asymptomatic but she is nonambulatory due to hip pain issues. Reviewed twelve-lead EKG and echocardiogram preop and all unremarkable. Okay to go for surgery.
History of stroke-on aspirin statin
Hyperlipidemia -atorvastatin 40 mg p.o. every evening.
Osteoporosis-not contributing to her presentation.
GERD/peptic ulcer disease-on Protonix 40 mg p.o. every evening
Depression-continue Cymbalta 30 mg p.o. every evening and Wellbutrin 150 mg p.o. daily
Hx of rectal cancer
DVT prophylaxis-Lovenox SQ
CODE STATUS -full code
Total time spent on today's encounter was 52 minutes which included time spent in counseling the patient/family regarding diagnosis and treatment plan as listed above, goals of care, and symptom management. Case was discussed with nursing staff,
specialists, and care coordinators/case management. All labs and imaging personally reviewed by me. Remainder the time spent in detailed review of previous records, lab data, imaging, and other medical provider documentation.
Anticipated Discharge: > 48 hours
Subjective/Interval History
-
Date of Service: October 15, 2024
Patient main complaint is pain in her left hip. Afebrile. No chest pain or shortness of breath
Objective Data
-
Labs:
Laboratory Results
10/15/24
05:11
WBC 15.1 H
Hgb 11.1 L
Hct 32.9 L
Plt Count 256
Sodium 132 L
Potassium 4.1
Chloride 104
Carbon Dioxide 26
BUN 21 H
Creatinine 0.9
Glucose 104 H
Calcium 8.1 L
Vital Signs:
Vital Signs
Temp Pulse Resp BP Pulse Ox
98 F 93 16 130/74 96
10/15/24 08:17 10/15/24 08:17 10/15/24 08:17 10/15/24 08:17 10/15/24 08:17
I&O
10/14/24 10/15/24 10/16/24
06:59 06:59 06:59
Intake Total 840 / 840 1380 / 1380
Balance 840 / 840 1380 / 1380
[2024-10-15] MEDS: TORADOL 15 MG IV (13:55)
[2024-10-15 15:50] VITALS: BP 103/54
[2024-10-15] MEDS: FLEXERIL 5 MG PO ×2 (16:09→21:31)
--- NOTE | 2024-10-15 16:40 | CM ---
Pt for hip surgery tomorrow.
Will need PT OT reorder post surgery.
Pt continues with pain.Mediated for pain as needed.
PLAN will need postop PT OT for dc planning .
[2024-10-15 17:01] LABS: Urine Albumin 1+ (Neg - Trace); Urine Bilirubin Negative (Negative); Urine Character Clear (Clear); Urine Color Yellow; Urine Glucose Negative (Negative); Urine Ketone Negative (Negative); Urine Leukocyte Negative (Negative); Urine Nitrite Negative (Negative); Urine Occult Blood Negative (Negative); Urine Urobilinogen Negative (Neg - 1+)
[2024-10-15] MEDS: LOVENOX 40 MG SC (17:13)
[2024-10-15] MEDS: LIPITOR 40 MG PO (17:13)
[2024-10-15 17:18] LABS: Urine Red Blood Cell 0-2 /HPF (0-2)
[2024-10-15 17:19] LABS: Urine Bacteria Few (Negative)
[2024-10-15] MEDS: PROTONIX 40 MG PO (21:31)
[2024-10-15] MEDS: CYMBALTA DELAYED RELEASE 30 MG PO (21:31)
[2024-10-15] MEDS: LIDOCAINE 4% PATCH 1 PATCH TOPICAL (21:32)
[2024-10-15 21:47] VITALS: BP 117/66
[2024-10-15 23:00] VITALS: BP 127/68
[2024-10-16] VITALS (25 sets, daily range): BP systolic 82–117; BP diastolic 47–80; PULSE 89–97; O2SAT 95–96
[2024-10-16] MEDS: TYLENOL 1000 MG PO ×3 (05:07→20:08)
[2024-10-16 06:06] LABS: % Basophils 0.2 % (0-2); % Immature Granulocytes 0.5 % (0-0.5); % Lymphocytes 12.1 % (20.5-51.1); % Monocytes 13.5 % (1.7-9.3); % Neutrophils 70.7 % (42.2-75.2); Absolute Eosinophils 0.3 10^3/uL (0-0.7); Absolute Immature Granulocytes 0.1 10^3/uL (0-0.05); Absolute Lymphocytes 1.3 10^3/uL (1.2-3.4); Absolute Monocytes 1.4 10^3/uL (0.1-0.6); Absolute Neutrophils 7.6 10^3/uL (1.4-6.5); Hematocrit 31.3 % (37.0-47.0); Hemoglobin 10.7 g/dL (12.0-16.0); Mean Corp Hgb Conc. 34.2 g/dL (33.0-37.0); Mean Corpuscular Hgb 29.6 pg (27.0-31.0); Mean Corpuscular Volume 86.7 fL (81.0-99.0); Mean Platelet Volume 9.2 fL (7.4-10.4); Nucleated Red Blood Cells % 0 %; Platelet Count 264 10^3/uL (130-400); Red Blood Cell Count 3.61 10^6/uL (4.20-5.40); Red Cell Dist. Width 14.2 % (11.5-14.5); White Blood Cell Count 10.7 10^3/uL (4.8-10.8)
[2024-10-16 06:27] LABS: Blood Urea Nitrogen 15 mg/dl (7-17); Calcium 7.6 mg/dl (8.4-10.2); Carbon Dioxide 23 mmol/L (22-30); Chloride 106 mmol/L (98-107); Estimated Creatinine Clearance 47 ml/min; Glucose 97 mg/dl (70-99); Potassium 4.4 mmol/L (3.5-5.1); Sodium 131 mmol/L (135-145); eGFR > 60.00
--- NOTE | 2024-10-16 07:31 | W.PN.HOSP.TC ---
Today's Communication/Plan
-
Plan for hip surgery today
Assessment / Plan
Assessment / Plan
Gen-AAOx3, NAD
HEENT-NC, AT, anicteric, clear oral mm
Neck-supple
CV-reg, no M, +S1/S2
Lungs-clear B/L
Abd-soft, NT, ND
Ext-left lateral hip edema
Musculoskeletal-no cyanosis, clubbing
Skin-warm and dry
Neuro-grossly non-focal
Psych-calm, cooperative
A/P:
Intractable left hip pain -felt to be due to osteoarthritis of the left hip with fluid extravasated from the femoral fixation-left hip/femur BREANNA with conversion to STACY today 10/16. Status post fluid drain no growth. Continue pain control but adjust
medication for better pain control, . Discussed with at bedside yesterday.
Leukocytosis-reactive. Back to normal. Workup for infectious etiology negative.
Preop [id number] EKG and echocardiogram preop and all unremarkable. Okay to go for surgery.
History of stroke-on aspirin statin
Hyperlipidemia -atorvastatin 40 mg p.o. every evening.
Osteoporosis-not contributing to her presentation.
GERD/peptic ulcer disease-on Protonix 40 mg p.o. every evening
Depression-continue Cymbalta 30 mg p.o. every evening and Wellbutrin 150 mg p.o. daily
Hx of rectal cancer
DVT prophylaxis-Lovenox SQ
CODE STATUS -full code
Total time spent on today's encounter was 52 minutes which included time spent in counseling the patient/family regarding diagnosis and treatment plan as listed above, goals of care, and symptom management. Case was discussed with nursing staff,
specialists, and care coordinators/case management. All labs and imaging personally reviewed by me. Remainder the time spent in detailed review of previous records, lab data, imaging, and other medical provider documentation.
Anticipated Discharge: 24 - 48 hours
Subjective/Interval History
-
Date of Service: October 16, 2024
No new complaints.
Objective Data
-
Labs:
Laboratory Results
10/16/24
05:09
WBC 10.7
Hgb 10.7 L
Hct 31.3 L
Plt Count 264
Sodium 131 L
Potassium 4.4
Chloride 106
Carbon Dioxide 23
BUN 15
Creatinine 0.8
Glucose 97
Calcium 7.6 L
Vital Signs:
Vital Signs
Temp Pulse Resp BP Pulse Ox
99.4 F 98 18 127/68 97
10/15/24 23:00 10/15/24 23:00 10/15/24 23:00 10/15/24 23:00 10/15/24 23:00
I&O
10/15/24 10/16/24 10/17/24
06:59 06:59 06:59
Intake Total 1380 / 1380 720 / 720
Balance 1380 / 1380 720 / 720
--- NOTE | 2024-10-16 07:34 | W.PN.UPDATE ---
Update Note
Progress Note Update
Ms. Barajas is resting comfortably in bed this morning. She is scheduled for conversion left total hip replacement today under the direction of Dr. Carrasco. All remaining questions were answered. NPO until surgery. Orthopedics will continue to follow
along.
[2024-10-16] MEDS: ANCEF 10 IV (09:13)
[2024-10-16] MEDS: VITAMIN C PO (09:14)
[2024-10-16] MEDS: WELLBUTRIN XL (24 hour extended release) PO (09:14)
[2024-10-16] MEDS: MIRALAX PO (09:14)
[2024-10-16] MEDS: VISBIOME PO (09:14)
[2024-10-16] MEDS: FLEXERIL PO (09:14)
[2024-10-16] MEDS: LOW STRENGTH ASPIRIN PO (09:14)
[2024-10-16] MEDS: DILAUDID 0.25 MG IV ×2 (13:38→15:54)
[2024-10-16] MEDS: ANCEF 5 IV (16:50)
[2024-10-16] MEDS: FLEXERIL 5 MG PO ×2 (16:56→20:15)
[2024-10-16] MEDS: LIPITOR 40 MG PO (17:37)
[2024-10-16] MEDS: ROXICODONE 10 MG PO ×2 (17:42→23:28)
[2024-10-16] MEDS: ASPIRIN 325 MG PO (18:20)
--- NOTE | 2024-10-16 18:28 | PTCARENOTE ---
Pt arrived to [facility] at 1800 from PACU. Pt has Left hip dressing with aquacell and c/d/i. Pt oriented to room and call baird. Bed locked and in lowest position. Assisted pt onto BP for void. Care ongoing.
[2024-10-16] MEDS: LIDOCAINE 4% PATCH 1 PATCH TOPICAL (20:11)
[2024-10-16] MEDS: DILAUDID 1 MG IV (20:24)
[2024-10-16] MEDS: LIDOCAINE 4% PATCH TOPICAL (22:05)
[2024-10-16] MEDS: CYMBALTA DELAYED RELEASE 30 MG PO (23:25)
[2024-10-16] MEDS: PROTONIX 40 MG PO (23:25)
[2024-10-17] VITALS (7 sets, daily range): BP systolic 95–138; BP diastolic 50–76; PULSE 90–95; O2SAT 95–98
[2024-10-17] MEDS: FLUSH (NSS) 2 FLUSH IV (02:01)
[2024-10-17] MEDS: ANCEF 5 IV (02:01)
[2024-10-17] MEDS: TYLENOL 1000 MG PO ×3 (02:08→21:33)
[2024-10-17 06:11] LABS: Hemoglobin 8.9 g/dL (12.0-16.0)
[2024-10-17 06:33] LABS: Blood Urea Nitrogen 12 mg/dl (7-17); Calcium 7.5 mg/dl (8.4-10.2); Carbon Dioxide 24 mmol/L (22-30); Chloride 107 mmol/L (98-107); Estimated Creatinine Clearance 63 ml/min; Glucose 163 mg/dl (70-99); Potassium 4.5 mmol/L (3.5-5.1); Sodium 134 mmol/L (135-145); eGFR > 60.00
--- NOTE | 2024-10-17 06:47 | W.PN.ORTHO ---
Today's Communication / Plan
-
PT/OT
Weightbearing as tolerated with walker
Pain medication as indicated
Aspirin for DVT prophylaxis
Follow hemoglobin
Once medically stable hopefully home with visiting nurses
Follow-up with orthopedics 2 to 4 weeks postop
Assessment
.
Distal Motor Intact: Yes
Dressing:
Clean, dry and intact.
Plan
.
Surgery / Date: L hip conv prior hip surgery to STACY 10/16 [facility]
DVT Prophylaxis: Aspirin
Activity:
Out of bed.
PT/OT
Discharge Plan: Home w/ VN
Subjective
.
.:
Patient resting comfortably.
Vital Signs and Labs
.
Vital Signs and Labs:
Lab Results
10/17/24 05:26
10/17/24 05:26
Temp Pulse Resp BP Pulse Ox
97.8 F 78 14 95/50 92
10/17/24 03:00 10/17/24 03:00 10/17/24 03:00 10/17/24 03:00 10/17/24 03:00
--- NOTE | 2024-10-17 08:24 | W.PN.HOSP.TC ---
Today's Communication/Plan
-
Postop eval. Discharge planning
Assessment / Plan
Assessment / Plan
Gen-AAOx3, NAD
HEENT-NC, AT, anicteric, clear oral mm
Neck-supple
CV-reg, no M, +S1/S2
Lungs-clear B/L
Abd-soft, NT, ND
Ext-left lateral hip edema
Musculoskeletal-postop left hip, no cyanosis, clubbing
Skin-warm and dry
Neuro-grossly non-focal
Psych-calm, cooperative
A/P:
Intractable left hip pain -felt to be due to osteoarthritis of the left hip with fluid extravasated from the femoral fixation-L hip conv prior hip surgery to STACY 10/16. PT OT eval. Discussed with at bedside today
Leukocytosis-reactive. Back to normal. Workup for infectious etiology negative.
Acute blood loss postop anemia-hemoglobin 8.9. Continue to monitor
Preop [id number] EKG and echocardiogram preop and all unremarkable. Okay to go for surgery. Postop doing well.
History of stroke-on aspirin statin
Hyperlipidemia -atorvastatin 40 mg p.o. every evening.
Osteoporosis-not contributing to her presentation.
GERD/peptic ulcer disease-on Protonix 40 mg p.o. every evening
Depression-continue Cymbalta 30 mg p.o. every evening and Wellbutrin 150 mg p.o. daily
Hx of rectal cancer
DVT prophylaxis-Aspirin, full dose
CODE STATUS -full code
Anticipated Discharge: Within 24 hours
Subjective/Interval History
-
Date of Service: October 17, 2024
Pain is better today. Postop discomfort. No chest pain or shortness of breath
Objective Data
-
Labs:
Laboratory Results
10/17/24
05:26
Hgb 8.9 L
Hct 26.0 L
Sodium 134 L
Potassium 4.5
Chloride 107
Carbon Dioxide 24
BUN 12
Creatinine 0.6
Glucose 163 H
Calcium 7.5 L
Vital Signs:
Vital Signs
Temp Pulse Resp BP Pulse Ox
98.6 F 87 16 110/70 97
10/17/24 07:40 10/17/24 07:40 10/17/24 07:40 10/17/24 07:40 10/17/24 07:40
I&O
10/16/24 10/17/24 10/18/24
06:59 06:59 06:59
Intake Total 720 / 720 2510 / 2510
Output Total 900 / 900
Balance 720 / 720 1610 / 1610
[2024-10-17] MEDS: WELLBUTRIN XL (24 hour extended release) 150 MG PO (08:54)
[2024-10-17] MEDS: ROXICODONE 10 MG PO ×3 (08:55→17:41)
[2024-10-17] MEDS: VISBIOME 1 CAP PO (08:55)
[2024-10-17] MEDS: FLEXERIL 5 MG PO ×3 (08:55→21:34)
[2024-10-17] MEDS: VITAMIN C 500 MG PO (08:56)
[2024-10-17] MEDS: MIRALAX PO (08:56)
[2024-10-17] MEDS: ASPIRIN 325 MG PO (08:56)
--- NOTE | 2024-10-17 11:56 | CM ---
Addendum entered by Quentin Walker 10/17/24 14:34:
[facility] accepted the pt with first RN visit on 10/22/24. Pt is aware, expressed her agreement to have [facility] even they will have the first visit on 10/22/24.
Please fax discharge instructions to [facility] at [phone]
D/C plan: home with [facility] and family support. to transport at discharge.
Original Note:
CM following re: discharge planning.
Reviewed pt's chart, met with pt and pt's spouse at bedside.
Pt is POD#1 L hip conv prior hip surgery to STACY, continue supportive care.
PT and OT evaluations noted - home health level of care recommended.
Both pt and her are aware, expressed their agreement and pt stated she had [facility] home in the past and she is requested [facility]. A referral to [facility] made.
D/C plan: home with [facility] and family support. to transport at discharge.
CM will follow to assist pt with discharge home with [facility].
[2024-10-17] MEDS: LIPITOR 40 MG PO (17:41)
[2024-10-17] MEDS: CYMBALTA DELAYED RELEASE 30 MG PO (21:33)
[2024-10-17] MEDS: PROTONIX 40 MG PO (21:34)
[2024-10-17] MEDS: LIDOCAINE 4% PATCH TOPICAL (21:35)
[2024-10-18] VITALS (7 sets, daily range): BP systolic 98–114; BP diastolic 54–65; PULSE 88–95; O2SAT 94–98
[2024-10-18] MEDS: SENOKOT-S 1 TABLET PO (00:45)
[2024-10-18] MEDS: TYLENOL 1000 MG PO ×3 (05:48→21:05)
--- NOTE | 2024-10-18 05:55 | W.PN.ORTHO ---
Today's Communication / Plan
-
PT/OT
Limit opioids/sedative medications
Discharge planning
Weightbearing as tolerated with walker
Posterior hip precautions x6 weeks
Pain medication as indicated
Aspirin for DVT prophylaxis 4 weeks
Follow-up with orthopedics 2 to 4 weeks postop
Orthopedic surgery will follow peripherally; please reengage with questions/concerns. DC info UTD
Assessment
.
Distal Motor Intact: Yes
Dressing:
Clean, dry and intact.
Plan
.
Surgery / Date: L hip conversion STACY 10/16 [facility]
Activity:
Out of bed.
PT/OT
Subjective
.
.:
Patient resting comfortably.Patient does report some hallucinations relative the combination of her skeletal muscle relaxant as well as opioid. Improved now. Pain improving
Vital Signs and Labs
.
Vital Signs and Labs:
Lab Results
10/17/24 05:26
Temp Pulse Resp BP Pulse Ox
98.8 F 84 16 106/67 96
10/17/24 23:00 10/17/24 23:00 10/17/24 23:00 10/17/24 23:00 10/17/24 23:00
[2024-10-18] MEDS: FLEXERIL 5 MG PO (07:37)
[2024-10-18] MEDS: WELLBUTRIN XL (24 hour extended release) 150 MG PO (07:37)
[2024-10-18] MEDS: VISBIOME 1 CAP PO (07:37)
[2024-10-18] MEDS: ASPIRIN 325 MG PO (07:37)
[2024-10-18] MEDS: VITAMIN C 500 MG PO (07:37)
[2024-10-18] MEDS: MIRALAX PO (07:41)
[2024-10-18 07:51] LABS: Hematocrit 26.2 % (37.0-47.0); Hemoglobin 8.6 g/dL (12.0-16.0)
[2024-10-18] MEDS: ROXICODONE 5 MG PO ×3 (09:05→18:29)
--- NOTE | 2024-10-18 09:33 | W.PN.HOSP.TC ---
Addendum entered and electronically signed by Ja Garduno MD 10/18/24 14:57:
Hyponatremia
Original Note:
Today's Communication/Plan
-
Pain medication adjustments. Discharge planning
Assessment / Plan
Assessment / Plan
Gen-AAOx3, NAD
HEENT-NC, AT, anicteric, clear oral mm
Neck-supple
CV-reg, no M, +S1/S2
Lungs-clear B/L
Abd-soft, NT, ND
Ext-left lateral hip edema
Musculoskeletal-postop left hip, no cyanosis, clubbing
Skin-warm and dry
Neuro-grossly non-focal
Psych-calm, cooperative
A/P:
Intractable left hip pain -felt to be due to osteoarthritis of the left hip with fluid extravasated from the femoral fixation-L hip conv prior hip surgery to STACY 10/16. Discussed with prior. We discussed about discharge plan for possible
today as she is not comfortable due to pain and some side effects of medications-I told her we will reevaluate for possible discharge planning either later today or tomorrow depending on her clinical course. Will discontinued Flexeril, we decreased
oxycodone from 10 to 5 mg, also will have physical therapy to reevaluate her; discussed with attending RN; discussed with OT at bedside; discussed with case packer today as well.
Leukocytosis-reactive. Back to normal. Workup for infectious etiology negative.
Acute blood loss postop anemia-hemoglobin 8.6. Continue to monitor as outpatient
Preop [id number] EKG and echocardiogram preop and all unremarkable. Okay to go for surgery. Postop doing well.
History of stroke-on aspirin statin
Hyperlipidemia -atorvastatin 40 mg p.o. every evening.
Osteoporosis-not contributing to her presentation.
GERD/peptic ulcer disease-on Protonix 40 mg p.o. every evening
Depression-continue Cymbalta 30 mg p.o. every evening and Wellbutrin 150 mg p.o. daily
Hx of rectal cancer
DVT prophylaxis-Aspirin, full dose
CODE STATUS -full code
Anticipated Discharge: Today
Subjective/Interval History
-
Date of Service: October 18, 2024
Patient was complaining of being woozy and dizzy and feels pain medications was contributing. On the other hand, her pain is not well-controlled yet. No chest pain or shortness of breath. Afebrile
Objective Data
-
Labs:
Laboratory Results
10/18/24
07:06
Hgb 8.6 L
Hct 26.2 L
Vital Signs:
Vital Signs
Temp Pulse Resp BP Pulse Ox
98.1 F 96 18 114/61 90
10/18/24 07:30 10/18/24 07:30 10/18/24 07:30 10/18/24 07:30 10/18/24 07:30
I&O
10/17/24 10/18/24 10/19/24
06:59 06:59 06:59
Intake Total 2510 / 2510 896 / 896 240 / 240
Output Total 900 / 900 750 / 750
Balance 1610 / 1610 146 / 146 240 / 240
--- NOTE | 2024-10-18 10:15 | CM ---
CM following re: discharge planning.
Reviewed pt's chart, met with pt.
Pt is POD#2 L hip conv prior hip surgery to STACY, continue supportive care.
Updated PT and OT evaluations noted - home health level of care recommended.
[facility] accepted the pt with first RN visit on 10/22/24. Pt is aware, expressed her agreement to have [facility] even they will have the first visit on 10/22/24.
Please fax discharge instructions to [facility] at [phone]
D/C plan: home with [facility] and family support. to transport at discharge.
--- NOTE | 2024-10-18 14:24 | PN.CDI ---
CDI
- -
CDI:
Physician Documentation Request
Admit Date: 10/14/24 09:19
Dear Doctor Laureen,
Patient admitted with intractable left hip pain.
Sodium results:
10/12/24 10/15/24 10/16/24
06:17 05:11 05:09
Sodium 138 132 L 131 L
10/17/24
05:26
Sodium 134 L
Please provide a diagnosis that supports the above lab abnormalities and additional evaluation, monitoring:
Hyponatremia
Abnormal lab value clinically insignificant
Other
Use of terms such as suspected, likely, concern for, or probable (associated with a specific diagnosis that is being evaluated, monitored, or treated as if it exists) are acceptable and can be coded in the inpatient setting, when documented at the
time of discharge.
Thank you,
Nicole Tafoya RN, BSN
CDI Specialist
tiger text
Please use your independent medical judgment in providing your response.
[2024-10-18] MEDS: LIPITOR 40 MG PO (18:32)
[2024-10-18] MEDS: CYMBALTA DELAYED RELEASE 30 MG PO (21:05)
[2024-10-18] MEDS: PROTONIX 40 MG PO (21:10)
[2024-10-19 03:10] VITALS: BP 112/66
[2024-10-19] MEDS: ROXICODONE 5 MG PO (06:30)
[2024-10-19 07:00] VITALS: BP 133/67
[2024-10-19 07:15] LABS: Hematocrit 25.8 % (37.0-47.0); Hemoglobin 8.6 g/dL (12.0-16.0)
[2024-10-19 07:46] LABS: Blood Urea Nitrogen 12 mg/dl (7-17); Calcium 8.3 mg/dl (8.4-10.2); Carbon Dioxide 27 mmol/L (22-30); Chloride 107 mmol/L (98-107); Estimated Creatinine Clearance 54 ml/min; Glucose 88 mg/dl (70-99); Potassium 4.1 mmol/L (3.5-5.1); Sodium 138 mmol/L (135-145); eGFR > 60.00
[2024-10-19] MEDS: VITAMIN C 500 MG PO (09:17)
[2024-10-19] MEDS: WELLBUTRIN XL (24 hour extended release) 150 MG PO (09:17)
[2024-10-19] MEDS: VISBIOME 1 CAP PO (09:17)
[2024-10-19] MEDS: ASPIRIN 325 MG PO (09:17)
[2024-10-19] MEDS: MIRALAX PO (09:21)
[2024-10-19 11:10] VITALS: BP 106/54
--- NOTE | 2024-10-19 11:13 | W.PN.HOSP.TC ---
Today's Communication/Plan
-
Discharge planning today
Assessment / Plan
Assessment / Plan
Gen-AAOx3, NAD
HEENT-NC, AT, anicteric, clear oral mm
Neck-supple
CV-reg, no M, +S1/S2
Lungs-clear B/L
Abd-soft, NT, ND
Ext-left lateral hip edema
Musculoskeletal-postop left hip, no cyanosis, clubbing
Skin-warm and dry
Neuro-grossly non-focal
Psych-calm, cooperative
A/P:
Intractable left hip pain -felt to be due to osteoarthritis of the left hip with fluid extravasated from the femoral fixation-L hip conv prior hip surgery to STACY 10/16. Comfortable with current regimen. Plan to discharge today.
Prior to today:
Discussed with prior. We discussed about discharge plan for possible today as she is not comfortable due to pain and some side effects of medications-I told her we will reevaluate for possible discharge planning either later today or
tomorrow depending on her clinical course. Will discontinued Flexeril, we decreased oxycodone from 10 to 5 mg, also will have physical therapy to reevaluate her; discussed with attending RN; discussed with OT at bedside; discussed with case supervisor
today as well.
Leukocytosis-reactive. Back to normal. Workup for infectious etiology negative.
Acute blood loss postop anemia-hemoglobin 8.6. Continue to monitor as outpatient
Preop [id number] EKG and echocardiogram preop and all unremarkable. Okay to go for surgery. Postop doing well.
History of stroke-on aspirin statin
Hyperlipidemia -atorvastatin 40 mg p.o. every evening.
Osteoporosis-not contributing to her presentation.
GERD/peptic ulcer disease-on Protonix 40 mg p.o. every evening
Depression-continue Cymbalta 30 mg p.o. every evening and Wellbutrin 150 mg p.o. daily
Hx of rectal cancer
DVT prophylaxis-Aspirin, full dose
CODE STATUS -full code
Anticipated Discharge: Today
Subjective/Interval History
-
Date of Service: October 19, 2024
Objective Data
-
Labs:
Laboratory Results
10/19/24
06:41
Hgb 8.6 L
Hct 25.8 L
Sodium 138
Potassium 4.1
Chloride 107
Carbon Dioxide 27
BUN 12
Creatinine 0.7
Glucose 88
Calcium 8.3 L
Vital Signs:
Vital Signs
Temp Pulse Resp BP Pulse Ox
98.4 F 98 14 133/67 96
10/19/24 07:00 10/19/24 07:00 10/19/24 07:00 10/19/24 07:00 10/19/24 07:00
I&O
10/18/24 10/19/24 10/20/24
06:59 06:59 06:59
Intake Total 896 / 896 720 / 720 240 / 240
Output Total 750 / 750
Balance 146 / 146 720 / 720 240 / 240
--- NOTE | 2024-10-19 11:15 | W.DCSUMMARY ---
Discharge Summary
Discharge Data
Date of Admission: 10/14/24
Date of Discharge: 10/19/24
-
Pending Results: No
Hospital Course
Patient is 74 years old female with history of CVA, depression anxiety, migraines hyperlipidemia, osteoporosis, rectal cancer status post chemo and radiation, bilateral proximal femur fractures status post surgeries, came into the hospital with
intractable pain in the left hip area. Orthopedic consulted. She had aspiration of the joint but showed no signs of infection. She had pain medications and her pain was difficult to control. Ultimately she had images including MRI and orthopedic
felt that she needed a conversion of her prior left hip surgery. On 10/16 she went conversion of previous hip surgery with rodding into the left total hip arthroplasty. Patient did well postop. She participated with PT and OT and recommended home
with home health. She is being discharged in stable condition today.
Discharge duration: 35 minutes
Discharge Plan
-
Patient Disposition: Home with Home Care
Discharge Diagnosis/Procedures: Left hip pain status post conversion previous surgery to total hip arthroplasty.
Activity: As tolerated and With Walker
Additional Activity: posterior hip precautions x6 weeks
Driving Restrictions: Not until seen by your Dr
Bathing Restrictions: OK to Shower
Blood Work: Please PCP to order CBC, BMP within 1 week
Referrals:
Kenia Lundberg MD [Family Provider] - in less than 1 week
Peter Carrasco MD [Active] - (2 weeks from date of surgery)
Prescriptions:
New
polyethylene glycol 3350 17 gram Powder In Packet
17 g PO DAILY Qty: 14 0RF
aspirin 325 mg Tablet
325 mg PO DAILY 30 Days Qty: 30 0RF
oxycodone 5 mg Tablet
5 mg PO Q4HPRN PRN (Reason: moderate pain) Qty: 14 0RF
lidocaine 4 % Adhesive Patch,Medicated
1 patch topical HS Qty: 4 0RF
Continued
ascorbic acid (vitamin C) [Vitamin C] 500 MG tablet
500 mg PO DAILY
cholecalciferol (vitamin D3) 1,000 UNITS tablet
1,000 units PO DAILY
atorvastatin 40 MG tablet
40 mg PO QPM
calcium carbonate 500 mg calcium (1,250 mg) Tablet
500 mg PO DAILY
bupropion HCl [Wellbutrin XL] 300 mg Tablet Extended Release 24 Hr
300 mg PO DAILY
duloxetine [Cymbalta] 30 mg Capsule,Delayed Release(Dr/Ec)
30 mg PO HS
Visbiome 112.5 billion cell Capsule
1 cap PO DAILY
omeprazole 20 mg Tablet,Delayed Release (Dr/Ec)
40 mg PO HS
acetaminophen [Tylenol Extra Strength] 500 mg Tablet
1,000 mg PO Q6HPRN PRN (Reason: mild pain)
Discontinued
aspirin 81 MG tablet,chewable
81 mg PO DAILY
prednisone 10 mg Tablet
40 mg PO DIRECTED
Rx Instructions:
starting 10/08/24 take 40mg daily for 3 days then 30mg daily for 3 days then 20mg daily for 3 days then 10mg daily for 3 days
Discharge Orders:
Discharge Patient (As Directed); Ordered 10/19/24
Ordered By: Ja Garduno
Discharge Date and Time
Discharge Date/Time: 10/19/24 12:54
Print Language: SLOVENIAN
--- NOTE | 2024-10-19 12:51 | CM ---
Patient has been medically cleared for discharge to home with Michael MCDERMOTT RN, PT/OT. Start of Care for 10/22/24. Patient aware. Family will transport home.
== END 2024-10-19 12:54 | disposition home health service (06) | DRG 908 ==
LOC: 2 SOUTH 09:19
PROVIDERS: Orthopaedic Surgery; Physician Assistant; Physician Assistant Medical; ADMITTING PHYSICIAN Hospitalist; ATTENDING PHYSICIAN Hospitalist; CONSULT PHYSICIAN Orthopaedic Surgery; EMERGENCY PHYSICIAN Emergency Medicine; FAMILY PHYSICIAN Internal Medicine
PROC: 0SPB04Z Removal of Internal Fixation Device from Left Hip Joint, Open Approach (ICD-10-PCS; 2024-10-16)
PROC: 0SRB01A Replacement of Left Hip Joint with Metal Synthetic Substitute, Uncemented, Open Approach (ICD-10-PCS; 2024-10-16)
DX: T85.698A Other mechanical complication of other specified internal prosthetic devices, implants and grafts, initial encounter (principal); D62 Acute posthemorrhagic anemia; E87.1 Hypo-osmolality and hyponatremia; M16.12 Unilateral primary osteoarthritis, left hip; K21.9 Gastro-esophageal reflux disease without esophagitis; M81.0 Age-related osteoporosis without current pathological fracture; D72.829 Elevated white blood cell count, unspecified; F32.A Depression, unspecified; F41.9 Anxiety disorder, unspecified; G43.909 Migraine, unspecified, not intractable, without status migrainosus; E78.5 Hyperlipidemia, unspecified; Y83.1 Surgical operation with implant of artificial internal device as the cause of abnormal reaction of the patient, or of later complication, without mention of misadventure at the time of the procedure; Y92.9 Unspecified place or not applicable; Z96.652 Presence of left artificial knee joint; Z96.642 Presence of left artificial hip joint; Z86.73 Personal history of transient ischemic attack (TIA), and cerebral infarction without residual deficits; Z87.11 Personal history of peptic ulcer disease; Z79.82 Long term (current) use of aspirin; Z92.21 Personal history of antineoplastic chemotherapy; Z92.3 Personal history of irradiation; Z85.048 Personal history of other malignant neoplasm of rectum, rectosigmoid junction, and anus
CPT/HCPCS: 71045; 73502; 73721; 80048; 80053; 81003; 81015; 83605; 85014; 85018; 85025; 85027; 85652; 86140; 86850; 86900; 86901; 87070; 87176; 87205; 93005; 93306; 93971; 96374; 97110; 97116; 97161; 97164; 97165; 97168; 97530; 97535; 99284

== ENCOUNTER 2024-12-01 14:22 | Inpatient (IN) | payer MEDICARE, SELFPAY ==
[2024-12-01] VITALS (44 sets, daily range): BP systolic 108–155; BP diastolic 50–105; BMI 25.8
[2024-12-01 06:43] LABS: ALT (SGPT) 15 U/L (0-35); AST (SGOT) 23 U/L (14-36); Albumin 3.7 g/dl (3.5-5.0); Alkaline Phosphatase 110 U/L (38-126); Blood Urea Nitrogen 21 mg/dl (7-17); Calcium 9.0 mg/dl (8.4-10.2); Carbon Dioxide 24 mmol/L (22-30); Chloride 107 mmol/L (98-107); Glucose 107 mg/dl (70-99); Potassium 4.0 mmol/L (3.5-5.1); Sodium 137 mmol/L (135-145); Total Protein 6.8 g/dl (6.3-8.2); eGFR > 60.00
[2024-12-01 07:02] LABS: Hematocrit 33.3 % (37.0-47.0); Hemoglobin 10.9 g/dL (12.0-16.0); Mean Corp Hgb Conc. 32.7 g/dL (33.0-37.0); Mean Corpuscular Volume 89.0 fL (81.0-99.0); Nucleated Red Blood Cells % 0 %; Platelet Count 312 10^3/uL (130-400); Red Cell Dist. Width 13.8 % (11.5-14.5)
[2024-12-01] MEDS: DILAUDID 0.5 MG IV (08:23)
--- NOTE | 2024-12-01 08:35 | ED.GENMED ---
History of Present Illness
<Scotty Farley PA-C - Last Filed: 12/01/24 15:00>
General
Chief Complaint: Musculo-Skeletal Complaint
Time Seen by Provider: 12/01/24 07:58
History of Present Illness
History of Present Illness:
74-year-old female presents to the emergency department for evaluation of left hip pain that began late last night while doing exercises in bed. She has been unable to move the left hip since that time. She is 8 weeks status post total hip
replacement performed at this hospital by Dr. Carrasco.
Past History
<Scotty Farley PA-C - Last Filed: 12/01/24 15:00>
Past History
ED Past Medical History: GERD, Other (osteoporosis, DJD, rectal cancer, gastric ulcer), Other (TIA) and Other (Migraines)
Social History
Tobacco: Non-smoker
Personal:
Living: with family
Review of Systems
<Scotty Farley PA-C - Last Filed: 12/01/24 15:00>
Review of Systems
Allergies reviewed?: Yes
All Other Systems: ROS reviewed and negative except as documented in HPI and ROS
Phy Exam
<Scotty Farley PA-C - Last Filed: 12/01/24 15:00>
Physical Exam
Physical Exam:
GEN: Well appearing, NAD, WDWN
HEENT: Oral mucosa moist, no scleral icterus
Cardiac: Regular rate
Lung: No respiratory distress, no tachypnea
MSK: Shortening and external rotation of the left lower extremity is noted, bandage to the left hip arthroplasty is intact
Skin: Good color, no pallor or jaundice, no rashes
Neuro: AO x3, moves all extremities freely
Psych: Calm, cooperative
Course
<ERNIE Cosby Last Filed: 12/01/24 15:00>
Orders/Labs/Results
Orders:
Orders
12/01/24
Hip, Left 2-3 Views [CR Hip - LT w/wo Pel 2-3 Vw*] Urgent
Comment:
Reason For Exam: recent hip replacement; tonight felt a pop + pain
Include a pelvis x-ray?: No
12/01/24 06:11
Type And Crossmatch [Type+Screen] Urgent
Complete Blood Count/With Diff Urgent
Comprehensive Metabolic Panel Urgent
12/01/24 08:16
HYDROmorphone [Dilaudid] 0.5 mg IV NOW STA
12/01/24 08:24
Propofol [Diprivan] 20 ml .ROUTE .STK-MED
12/01/24 09:40
Hip, Left 1 View [CR Hip - LT without Pel 1 Vw] Urgent
Comment:
Reason For Exam: post reduction
12/01/24 11:34
Fentanyl Citrate/Pf [Sublimaze] 50 mcg IV NOW STA
12/01/24 11:57
Propofol [Diprivan] 20 ml .ROUTE .STK-MED
12/01/24 12:16
Hip, Left 1 View [CR Hip - LT without Pel 1 Vw] Urgent
Comment:
Reason For Exam: post reduction
12/01/24 12:26
CT Pelvis W/o Iv Contrast Urgent
Comment:
Reason For Exam: recurrent L STACY dislocation
12/01/24 13:36
diazePAM [Valium Injection] 2 mg IV NOW STA
12/01/24 14:12
Admit/Transfer Patient As Directed
Co-Sign Provider:
Level of Care: Inpatient admission
Assign to:: Medical/Surgical
Physician / Group: htay
Diagnosis: L STACY recuurent dislocations
Reason for Hospitalization: L STACY dislocations
Expected length of stay greater than two midnights?: Yes
ELOS- Estimated Length of Stay in days: 3
I certify the patient meets the requirements for IP care: Yes
12/01/24 14:14
Code Status As Directed
Resuscitation Status: Full Code
Abnormal Lab Results
12/01/24
06:11
WBC 12.4 H 10^3/uL
(4.8-10.8)
RBC 3.74 L 10^6/uL
(4.20-5.40)
Hgb 10.9 L g/dL
(12.0-16.0)
Hct 33.3 L %
(37.0-47.0)
MCHC 32.7 L g/dL
(33.0-37.0)
Abs Immat Gran (auto) 0.1 H 10^3/uL
(0-0.05)
Absolute Neuts (auto) 9.9 H 10^3/uL
(1.4-6.5)
Absolute Monos (auto) 1.0 H 10^3/uL
(0.1-0.6)
Neutrophils % 79.7 H %
(42.2-75.2)
Lymphocytes % 9.7 L %
(20.5-51.1)
BUN 21 H mg/dl
(7-17)
Glucose 107 H mg/dl
(70-99)
12/01/24 06:11
12/01/24 06:11
Vital Signs
Initial and Last Documented VS:
Initial Vital Signs
Temp Pulse Resp BP Pulse Ox
98.1 F 91 16 108/83 99
12/01/24 04:15 12/01/24 04:15 12/01/24 04:15 12/01/24 04:15 12/01/24 04:15
Last Documented Vital Signs
Temp Pulse Resp BP Pulse Ox
97.8 F 79 17 134/68 98
12/01/24 09:53 12/01/24 12:29 12/01/24 12:29 12/01/24 12:29 12/01/24 12:29
<Meenu Pineda MD - Last Filed: 12/01/24 09:59>
Orders/Labs/Results
Orders:
Orders
12/01/24
Hip, Left 2-3 Views [CR Hip - LT w/wo Pel 2-3 Vw*] Urgent
Comment:
Reason For Exam: recent hip replacement; tonight felt a pop + pain
Include a pelvis x-ray?: No
12/01/24 06:11
Type And Crossmatch [Type+Screen] Urgent
Complete Blood Count/With Diff Urgent
Comprehensive Metabolic Panel Urgent
12/01/24 08:16
HYDROmorphone [Dilaudid] 0.5 mg IV NOW STA
12/01/24 08:24
Propofol [Diprivan] 20 ml .ROUTE .STK-MED
12/01/24 09:40
Hip, Left 1 View [CR Hip - LT without Pel 1 Vw] Urgent
Comment:
Reason For Exam: post reduction
12/01/24 11:34
Fentanyl Citrate/Pf [Sublimaze] 50 mcg IV NOW STA
12/01/24 11:57
Propofol [Diprivan] 20 ml .ROUTE .STK-MED
12/01/24 12:16
Hip, Left 1 View [CR Hip - LT without Pel 1 Vw] Urgent
Comment:
Reason For Exam: post reduction
12/01/24 12:26
CT Pelvis W/o Iv Contrast Urgent
Comment:
Reason For Exam: recurrent L STACY dislocation
12/01/24 13:36
diazePAM [Valium Injection] 2 mg IV NOW STA
12/01/24 14:12
Admit/Transfer Patient As Directed
Co-Sign Provider:
Level of Care: Inpatient admission
Assign to:: Medical/Surgical
Physician / Group: htay
Diagnosis: L STACY recuurent dislocations
Reason for Hospitalization: L STACY dislocations
Expected length of stay greater than two midnights?: Yes
ELOS- Estimated Length of Stay in days: 3
I certify the patient meets the requirements for IP care: Yes
12/01/24 14:14
Code Status As Directed
Resuscitation Status: Full Code
Abnormal Lab Results
12/01/24
06:11
WBC 12.4 H 10^3/uL
(4.8-10.8)
RBC 3.74 L 10^6/uL
(4.20-5.40)
Hgb 10.9 L g/dL
(12.0-16.0)
Hct 33.3 L %
(37.0-47.0)
MCHC 32.7 L g/dL
(33.0-37.0)
Abs Immat Gran (auto) 0.1 H 10^3/uL
(0-0.05)
Absolute Neuts (auto) 9.9 H 10^3/uL
(1.4-6.5)
Absolute Monos (auto) 1.0 H 10^3/uL
(0.1-0.6)
Neutrophils % 79.7 H %
(42.2-75.2)
Lymphocytes % 9.7 L %
(20.5-51.1)
BUN 21 H mg/dl
(7-17)
Glucose 107 H mg/dl
(70-99)
12/01/24 06:11
12/01/24 06:11
Vital Signs
Initial and Last Documented VS:
Initial Vital Signs
Temp Pulse Resp BP Pulse Ox
98.1 F 91 16 108/83 99
12/01/24 04:15 12/01/24 04:15 12/01/24 04:15 12/01/24 04:15 12/01/24 04:15
Last Documented Vital Signs
Temp Pulse Resp BP Pulse Ox
97.8 F 79 17 134/68 98
12/01/24 09:53 12/01/24 12:29 12/01/24 12:29 12/01/24 12:29 12/01/24 12:29
Procedures
<Scotty Farley PA-C - Last Filed: 12/01/24 15:00>
Moderate Sedation
ASA Risk Score: Class II
Chart and allergies reviewed: Yes
Consent for anesthesia obtained: Yes
Time out completed (validating right patient & procedure): Yes
Moderate Sedation Start Time(when first medication is given): 09:31
History of difficult intubation: No
Airway free of obstruction: Yes
Patient has a gag reflex: Yes
Patient is able to open mouth: Yes
Patient has no dentures: No
Patient has no loose teeth: Yes
Medication administered by Provider during Moderate Sedation: IV Propofol (mg)
Total dose administered: 90
Time drug administered: 09:31
Moderate Sedation Procedure End Time: 09:44
Joint/Fracture Reduction
Left hip:
Indication for procedure:: Closed dislocation of L STACY
Procedure completed by: Scotty Farley PA-C, Meenu Pineda DO
Consent form signed: Yes
Joint reduced: with anesthesia sedation
Injury was: closed
Further treatement: needs re-check only
Post reduction exam: stable
Capillary Refill: normal
Normal distal neurovascular exam?: Yes
<Scotty Farley PA-C - Last Filed: 12/01/24 15:00>
MDM/Problems Addressed
MDM/Problems Addressed:
Patient was reduced under sedation and set to be discharged with knee immobilizer however transitioning to a wheelchair her hip dislocated. She was then brought back to the exam room and repeat procedural sedation was then performed after
discussion with orthopedic. Repeats XR not obtained prior to repeat procedure as a palpable posterior dislocation was evident on exam. Timeout for this repeat procedure was completed at 12:13 PM, meds were given at 12:13 PM, given a dose of 70 mg
propofol with adequate sedation, hip was again reduced in a closed manner, however repeat x-rays revealed abnormal positioning of the acetabular cup. Patient was then sent for CT scan which shows malpositioning of the acetabular cup, discussed with
orthopedics we will admit to the hospitalist service for orthopedic revision surgery later in the week.
<Scotty Farley PA-C - Last Filed: 12/01/24 15:00>
*Pulse Oximetry
SaO2: 99
Oxygen Mode of Delivery: Room air
Patient hypoxic: no
*Critical Care Note
Total Time (30-74mins, 75-104mins- exclusive of procedures): Not Applicable
ED Attending Note
<Scotty Farley PA-C - Last Filed: 12/01/24 15:00>
-
Portions of this chart may have been created with voice recognition software.� Occasional wrong word or��sound alike� substitutions may have occurred due to the inherent limitations of voice recognition software.
<Meenu Pineda MD - Last Filed: 12/01/24 09:59>
ED Attending Note
Patient seen and examined by attending physician: Yes
I performed the substantive portion of visit, reviewed & personally made and approve the management plan that is documented in note by myself or DIAN.: Yes
ED Attending Note:
Patient arrives without any signs of head or neck trauma. Left leg is shortened. Strong pulses in bilateral feet. Patient is breathing comfortably.
I personally got written consent and explained risks and benefits of conscious sedation and left hip reduction with patient. I personally administered the propofol and was involved with conscious sedation and reduction.
Discharge Plan
Departure
Patient Disposition: Admit
Date of Disposition: 12/01/24
Time of Disposition: 13:20
Admit to: Med/Surg
Presentation/result/management discussed w/ accepting MD/DO: Hospitalist
Patient with high blood pressure during this ER visit?: No
Discharge Problem:
Dislocation of internal left hip prosthesis
Interventions
Interventions:
*Risk Screen - Suicide Last Done: 12/01/24 04:15
*Neglect/Abuse Screening Last Done: 12/01/24 04:15
*ED- Fall Risk Assessment Last Done: 12/01/24 04:15
ED-Musculoskeletal Assessment Last Done: 12/01/24 09:25
[2024-12-01] MEDS: SUBLIMAZE 50 MCG IV (13:26)
[2024-12-01] MEDS: VALIUM INJECTION 2 MG IV (13:53)
--- NOTE | 2024-12-01 14:08 | HPS.HSE ---
Family Physician
-
Family Physician: Kenia Lundberg
Chief Complaint
-
Lt Hip pain after exercise
History of Present Illness
74F HX s/p L STACY 8 weeks ago seen at ER :
- evaluation of left hip pain that began late last night while doing exercises in bed.
- unable to move the left hip since that time.
- She is 8 weeks status post total hip replacement performed at this hospital by Dr. Carrasco.
At ER:
failed attempted reduction under sedation twice
First attempt, temporary success but failed when walking
Second attempt - failed to reduce
HX Lt femur Fx on 10/09 s/p ORIF with rods or IMN complicated with ? Bursa
S/P removed rods or IMN and ahd Lt STACY as of October 09
Medical History
Past Medical History
Past Medical History: Reports Other
Additional Past Medical History:
Left Basal Ganglia Capsular Lacunar Infarct
Anxiety / Depression
Migraine Headache
Hyperlipidemia
GERD/PUD
Osteoporosis
Rectal Cancer s/p Resection, Chemo/Radiation
Past Surgical History: Reports Other
Additional Past Surgical History:
Bilateral Femur Fracture Repair
Left Knee Replacement
Right Rotator Cuff Repair
Resection Rectal Cancer
Social History
Tobacco: Non-smoker
Alcohol: Occasional
Personal:
Living: With Family
Family History
Family History: Not pertinent
Allergies / Home Medications
Allergies reflects when Allergies were last updated in [employer].
Home Medications with original date entered in [employer]
Allergy/Medication List:
Allergies
Allergy/AdvReac Type Severity Reaction Status Date / Time
No Known Allergies Allergy Verified 10/06/24 11:09
Home Medications
ascorbic acid (vitamin C) 500 mg tablet (Vitamin C) 500 mg PO DAILY Supplement 12/24/13
cholecalciferol (vitamin D3) 25 mcg (1,000 unit) tablet 1,000 units PO DAILY Supplement 12/24/13
aspirin 81 mg chewable tablet 81 mg PO DAILY Blood clot prevention/tx 03/08/20
atorvastatin 40 mg tablet 40 mg PO QPM High cholesterol 03/08/20
Lactobac no.2-Bifidobac no.1-S. thermo 112.5 billion cell capsule (Visbiome) 1 cap PO DAILY 10/11/24
acetaminophen 500 mg tablet (Tylenol Extra Strength) 1,000 mg PO Q6HPRN PRN mild pain 10/11/24
bupropion HCl 300 mg 24 hr tablet, extended release (Wellbutrin XL) 300 mg PO DAILY 10/11/24
calcium carbonate 500 mg PO DAILY 10/11/24
duloxetine 30 mg capsule,delayed release (Cymbalta) 30 mg PO HS 10/11/24
omeprazole 20 mg tablet,delayed release 40 mg PO HS 10/11/24
prednisone 10 mg tablet 40 mg PO DIRECTED 10/11/24
Review of Systems
-
Constitutional: Reports No Symptoms
EENT: Reports No Symptoms
Respiratory: Reports No Symptoms
Cardiac: Reports No Symptoms
Abdomen/GI: Reports No Symptoms
: Reports No Symptoms
Musculoskeletal: Reports See HPI
Skin: Reports No Symptoms
Neurological: Reports No Symptoms
Endocrine: Reports No Symptoms
Hematologic/Lymphatic: Reports No Symptoms
Psych: Reports No Symptoms
Physical Exam
Vital Signs
Vital Signs
Temp Pulse Resp BP Pulse Ox
97.8 F 79 17 134/68 98
12/01/24 09:53 12/01/24 12:29 12/01/24 12:29 12/01/24 12:29 12/01/24 12:29
Physical Exam
General: Well Developed, Well Nourished and No Apparent Distress
HEENT: NormoCephalic, Moist mucous membranes and Atraumatic
Respiratory: Clear
Cardiac: S1/S2 and Regular Rhythm; No Murmur or Rub
GI: Soft, Non Tender, Non Distended and Normal Bowel Sounds; No Organomegaly
Rectal: Deferred by Provider
Musculoskeletal: Other (Shortening and external rotation of the left lower extremity is noted, bandage to the left hip arthroplasty is intact)
Skin: No Rash
Neuro: Nonfocal/grossly intact
Laboratory Results
-
12/01/24 06:11
12/01/24 06:11
Laboratory Results
Total Bilirubin 0.5 mg/dl (0.2-1.3) 12/01/24 06:11
AST 23 U/L (14-36) 12/01/24 06:11
ALT 15 U/L (0-35) 12/01/24 06:11
Alkaline Phosphatase 110 U/L (38-126) 12/01/24 06:11
Data Reviewed
-
Diagnostic Radiology: Report Reviewed by me
CT Scan: Report Reviewed by me
Lab Data: Labs Reviewed by me
Old Records: Reviewed
Impression/Plan
-
Vital Signs
Temp Pulse Resp BP Pulse Ox
97.8 F 79 17 134/68 98
12/01/24 09:53 12/01/24 12:29 12/01/24 12:29 12/01/24 12:29 12/01/24 12:29
Abnormal Lab Results
12/01/24
06:11
WBC 12.4 H
RBC 3.74 L
Hgb 10.9 L
Hct 33.3 L
MCHC 32.7 L
Abs Immat Gran (auto) 0.1 H
Absolute Neuts (auto) 9.9 H
Absolute Monos (auto) 1.0 H
Neutrophils % 79.7 H
Lymphocytes % 9.7 L
BUN 21 H
Glucose 107 H
No.1 CR Hip - LT without Pel 1 Vw
Interval reduction of the left prosthetic hip dislocation. There is an unchanged ossification adjacent to the proximal aspect of the femoral component.
No.2 CR Hip - LT without Pel 1 Vw
Reduction of femoral acetabular prosthetic dislocation seen on examination of [address] Pelvis W/o Iv Contrast
Superior lateral and posterior displacement of the acetabular component of left hip prosthesis, relative to the [place] acetabulum. There is also evidence for comminuted fracture of the acetabulum as described.
Fracture of the right superolateral sacral ala. Fracture of the inferior sacrum at the S5 level.
Last hospitalist admission: 10/14/24 -10/19/24
Discharge Diagnosis/Procedures: Left hip pain status post conversion previous surgery to total hip arthroplasty.
ASSESSMENT & PLAN
Pending Rx reconciliation
L STACY dislocations - failed attempted reduction under sedation twice - First attempt, temporary success but failed when walking -Second attempt - failed to reduce
Post Lt STACY 8 weeks ago
HX Osteoporosis-not contributing to her presentation.
- No NPO till definitive date for OR
- Fx set protocol
- Ortho consulted - will take to OR this week for revision
HX Lt femur Fx on 10/09 s/p ORIF with rods or IMN complicated with ? Bursa
S/P removed rods or IMN and ahd Lt STACY as of October 09
Leukocytosis-reactive.
- check UA
HX stroke
- on aspirin and statin [employer]
Hyperlipidemia
- on atorvastatin [employer]
GERD/peptic ulcer disease
- on Protonix
Depression
- on [employer] Cymbalta 30 mg p.o. every evening and Wellbutrin 150 mg p.o. daily
Hx of rectal cancer
Chronic anemia
DVT Px: SCD
Full code
IP MS
[2024-12-01] MEDS: TYLENOL 650 MG PO ×2 (18:03→20:44)
--- NOTE | 2024-12-01 18:17 | PTCARENOTE ---
Pt arrived 1737 from ED. Pt line puller x2. VSS. AAOX3. Immobilizer in place on L leg. Pt calll baird within reach and oriented to room. bed locked and in lowest position. care ongoing
[2024-12-01] MEDS: SENOKOT PO (20:44)
[2024-12-01] MEDS: COLACE 100 MG PO (20:44)
[2024-12-01] MEDS: CYMBALTA DELAYED RELEASE 30 MG PO (22:28)
[2024-12-01] MEDS: ROXICODONE 5 MG PO (22:28)
[2024-12-01] MEDS: LIPITOR 40 MG PO (22:28)
[2024-12-01] MEDS: NEURONTIN 300 MG PO (22:28)
[2024-12-01] MEDS: ASPIR LOW (ENTERIC COATED) 81 MG PO (22:28)
[2024-12-01] MEDS: PEPCID 20 MG PO (22:28)
--- NOTE | 2024-12-01 22:49 | W.PN.UPDATE ---
Update Note
Progress Note Update
74F who is s/p L hip conversion STACY 10/[address] Peter Carrasco admitted for left hip instability and hardware complication of the acetabular component, reduced in ER.
-currently tentative for OR Monday with Dr. Carrasco for revision STACY 04 December 2024
-NPO @ [facility] for OR 12/04/24
-knee immobilizer to reduce risk of left hip instability
-NWB and no ROM of left hip
-DVT chemoprophylaxis per primary with planned OR Monday with spinal nerve block; SCDs
-diet per primary
-antibiotics OCTOR
-type and screen on file 12/01
-irrigation products ordered.
[2024-12-02] MEDS: TYLENOL PO (01:00)
[2024-12-02] MEDS: TYLENOL 650 MG PO ×2 (04:28→08:27)
[2024-12-02] MEDS: DILAUDID 0.25 MG IV (05:06)
[2024-12-02 07:20] VITALS: BP 118/80
[2024-12-02] MEDS: SENOKOT 17.2 MG PO (08:27)
[2024-12-02] MEDS: COLACE 100 MG PO (08:27)
[2024-12-02] MEDS: WELLBUTRIN XL (24 hour extended release) 300 MG PO (08:27)
--- NOTE | 2024-12-02 08:27 | CON.ORTHO ---
Consultation
-
Date/Time Consultation Requested: December 20/1746
Date/Time Consultation Performed: December 20/0750
Requesting Provider: Danilo
Performing Provider: Luis Carrasco
Reason for Consultation: Fracture/Dislocation LEFT total hip prosthesis with component loosening
Consultation - Orthopedics
History
History of Present Illness:
74-year-old female presents to the emergency department with PMH signficiant for below, for evaluation of left hip pain that began late last night while doing exercises in bed. She has been unable to move the left hip since that time. She was
[facility] to [facility] where xrays confirmed she was dislocated. This was reduced by the ER. Correlating CT did reveal that this was a fracture dislocation (posterior wall of acetabulum) with component loosening. She is 8 weeks status post conversion LEFT
total hip replacement via Dr. Carrasco. Conversion surgery was back on October 20 and she had been recovering well post-op albeit some mild LBP for which she had an MRI this past Monday.
Past Medical History:
Hyperlipids, pre DM, diverticulosis, Fibromyalgia, pancreatitis, GERD, osteoporosis, DJD, rectal cancer, gastric ulcer, TIA migraines
Surgical History:
Left femur ORIF 2013
Left conversion STACY (September 2024)
uterine fibroid removal
D&E�����
Foot surgery left 2018�����
Rectal CA surgery 2011���������
Left knee replacement 2023
Social History:
Tobacco: Non-smoker
Personal:
Living: with family
Family History:
Not pertinent
ROS:
12 point negative except for those mentioned in the HPI
Allergies / Home Medications
Allergy/AdvReac Type Severity Reaction Status Date / Time
No Known Allergies Allergy Verified 12/01/24 04:20
�Medication �Instructions �Recorded
ascorbic acid (vitamin C) 500 mg 500 mg PO DAILY Supplement 12/24/13
tablet (Vitamin C)
atorvastatin 40 mg tablet 40 mg PO HS High cholesterol 03/08/20
Lactobac no.2-Bifidobac no.1-S. 1 cap PO HS Supplement 10/11/24
thermo 112.5 billion cell capsule
(Visbiome)
acetaminophen 500 mg tablet 1,000 mg PO Q8HPRN PRN mild pain 10/11/24
(Tylenol Extra Strength)
bupropion HCl 300 mg 24 hr tablet, 300 mg PO DAILY Mental 10/11/24
extended release (Wellbutrin XL) Health/Anxiety
calcium carbonate 500 mg PO DAILY Supplement 10/11/24
aspirin 81 mg tablet,delayed 81 mg PO HS 12/01/24
release
bisacodyl 5 mg tablet,delayed 5 mg PO HSPRN PRN constipation 12/01/24
release (Dulcolax (bisacodyl))
cholecalciferol (vitamin D3) 25 25 mcg PO DAILY 12/01/24
mcg (1,000 unit) tablet
cyanocobalamin (vitamin B-12) 1,000 mcg PO DAILY 12/01/24
1,000 mcg tablet
docusate sodium 100 mg capsule 200 mg PO HSPRN PRN constipation 12/01/24
(Stool Softener)
duloxetine 30 mg capsule,delayed 30 mg PO HS 12/01/24
release
famotidine 40 mg tablet 40 mg PO HS 12/01/24
gabapentin 300 mg capsule 300 mg PO HS 12/01/24
lidocaine 4 % topical patch 1 patch topical HSPRN PRN left hip 12/01/24
naproxen sodium 220 mg tablet 220 mg PO Q8HPRN PRN mild pain 12/01/24
(Aleve)
oxycodone 5 mg tablet 10 mg PO ONCE PRN severe pain 12/01/24
Vital Signs / Lab Results
Temp Pulse Resp BP Pulse Ox
98.0 F 83 17 118/80 98
12/02/24 07:20 12/02/24 07:20 12/02/24 07:20 12/02/24 07:20 12/02/24 07:20
12/01/24 06:11
12/01/24 06:11
Assessment / Plan
PE: Afeb. Left hip skin intact. LLE a bit short. Vertical scar over the posterior lateral thigh from previous STACY. generalized pain to palpation about the left hip. Deferred range of motion. KI in place left knee. calf soft, nontender. DNVI LLE
Diagnostics:
Xrays and CT pelvis and left hip reveal evidence of a periprosthetic fracture/ dislocation, which has been successfully reduced. Unfortunately CT evidence of posterior wall acetabular fracture and loosening of the prosthetic acetabulum in relation
to the t[place]ip anatomy
Impression: MARY
Plan: unfortunately Hilary has sustained a periprosthetic fracture/dislocation of her left hip prosthesis. This was successfully reduced in the ER, but CT does reveal evidence of component loosening. We discussed all nonoperative and operative
management for this issue, with strong recommendations to proceed with surgical correction. RBAs of each form of management were discussed, including surgical risks not limited to infection, bleeding, neurovascular injury, phlebitis, further
fracture, dislocation, damage to surrounding structures, stiffness, decreased range of motion, incomplete relief of pain, failure of the implants, need for further surgery, catastrophic occurrences, risk of anesthesia, AMI, CVA, , etc. She has
accepted all the proposed risks of surgery and would like to proceed. we briefly discussed the postop and rehab course as well. Dr. Carrasco will be stopping by this afternoon after his elective surgeries to discuss further with the patient. We have
tentatively posted her to the OR schedule for Monday for a revision LEFT STACY. surgical and blood consents have been signed by the patient and placed to her chart. Operative site has been marked as the left hip. updated T&S requested for
04 December. NPO order in for Monday AM. ABX/irrigation products will be art objects salesperson to the OR. Appreciate Dr. Don as her team with medical management. Will request ESR and CRP as a formality. Again, Dr. Carrasco to discuss a bit more in detail later,
with tentative OR on Monday for revision LEFT STACY.
--- NOTE | 2024-12-02 09:00 | W.PN.HOSP.TC ---
Today's Communication/Plan
-
PRN Flexeril
Order EKG for pre-op evaluation
Assessment / Plan
Assessment / Plan
Physical Exam
General: Well Developed, Well Nourished, No Apparent Distress
HEENT: Normocephalic, Moist mucous membranes and Atraumatic
Respiratory: Clear
Cardiac: S1/S2
GI: Soft, Non-Tender, Non-Distended and Normal Bowel Sounds, obese.
Rectal: NO bleeding.
Musculoskeletal: No Clubbing, No Cyanosis
Neuro: AAOX 3, Followed commands, Nonfocal/grossly intact
Psych: Calm
L STACY dislocations
Per ortho: a periprosthetic fracture/dislocation of her left hip prosthesis, recommend surgical repeair
Plan for OR on 12/04
- Fx set protocol
- Ortho consulted - appreciate help
# Muscles spams
add PRN Flexeril
Leukocytosis-reactive.
- check UA
HX stroke
- on aspirin and statin [employer]
Hyperlipidemia
- on atorvastatin [employer]
GERD/peptic ulcer disease
- on Protonix
Depression
- on [employer]PERINT[employer]ENT Cymbalta 30 mg p.o. every evening and Wellbutrin 150 mg p.o. daily
Hx of rectal cancer
Chronic anemia
DVT Px: SCD
Full code
Total time spent to see the patient, examine the patient, review data and lab result, discuss treatment plan with patient, nursing staff around 55 minutes
Anticipated Discharge: > 48 hours
Subjective/Interval History
-
Date of Service: December 02, 2024
no chest pain
no sob
no fever
reports muscle spams
Objective Data
-
Vital Signs:
Vital Signs
Temp Pulse Resp BP Pulse Ox
98.0 F 83 17 118/80 98
12/02/24 07:20 12/02/24 07:20 12/02/24 07:20 12/02/24 07:20 12/02/24 07:20
I&O
12/01/24 12/02/24 12/03/24
06:59 06:59 06:59
Intake Total 480 / 480
Output Total 450 / 450
Balance 30 / 30
[2024-12-02] MEDS: ROXICODONE 5 MG PO ×3 (09:56→19:41)
[2024-12-02 11:26] LABS: C-Reactive Protein 56.70 mg/L (0.0-10.00)
--- NOTE | 2024-12-02 13:46 | W.PN.UPDATE ---
Update Note
Progress Note Update
Pt seen and examined. Has had dislodgement of her acetabular component of the left total hip along with acetabular fx both anterior and posterior. Had a lengthy convo w. her and her about what to do next and I told her I'd like to reach
out to [facility] because the damage to the acetabulum is extensive and my require more advanced fixation techniques. Awaiting call back from [facility] ortho.
--- NOTE | 2024-12-02 15:04 | W.PN.UPDATE ---
Update Note
Progress Note Update
I emailed Dr. Strickland at [place] who declined pt's case but subsequently reached out to Dr. Dickinson, chief of trauma at [facility], who felt pt's injury warrants transfer to [place] for surgical repair due to fracturing of the acetabulum. I have sent Dr. Don
a TT to share the plan. I spoke w. patient who is in full agreement with the transfer plan.
[2024-12-02] MEDS: TYLENOL 1000 MG PO (15:25)
[2024-12-02 15:58] VITALS: BP 101/70
[2024-12-02 18:38] VITALS: BP 130/67
--- NOTE | 2024-12-02 18:46 | PTCARENOTE ---
Pt to be transferred to [facility], bed available and transport arranged. Dr Don made aware. Care ongoing.
--- NOTE | 2024-12-02 20:05 | PTCARENOTE ---
Pt transferred @ this time, IV removed VSS and recorded. Pt assisted with packing belongings. Phone and cook roast with patient @ d/c.
--- NOTE | 2024-12-03 07:05 | W.DCSUMMARY ---
Discharge Summary
Discharge Data
Date of Admission: 12/01/24
Date of Discharge: 12/02/24
-
Pending Results: No
Hospital Course
74 years old female admitted with periprosthetic fracture/dislocation of the left hip prosthesis. Patient was evaluated by orthopedic doctor. She was found to have dislodgment of left total hip along with acetabular fracture on both surfaces
anterior and posterior. Orthopedic doctor recommended to transfer the patient to [facility] due to complexity of the fracture. Dr. Carrasco spoke with Chief of trauma at [facility] Dr. Dickinson who accepted the patient. Transfer
center was called and arrangement was made to transfer the patient. Patient remained hemodynamically stable and agreed to transfer plan. Patient was transferred in a stable condition
Discharge Plan
-
Patient Disposition: Acute Care Hospital
Discharge Orders:
Discharge Patient (As Directed); Ordered 12/03/24
Ordered By: Ignacio Don
Discharge Date and Time
Discharge Date/Time: 12/02/24 20:36
Print Language: GERMAN
== END 2024-12-02 20:36 | disposition short-term general hospital (02) | DRG 559 ==
LOC: 2 SOUTH 14:22
PROVIDERS: Emergency Medicine; Physician Assistant Surgical; ADMITTING PHYSICIAN Internal Medicine; ATTENDING PHYSICIAN Internal Medicine; EMERGENCY PHYSICIAN Emergency Medicine; FAMILY PHYSICIAN Internal Medicine; OTHER PHYSICIAN Orthopaedic Surgery
DX: T84.021A Dislocation of internal left hip prosthesis, initial encounter (principal); S32.492A Other specified fracture of left acetabulum, initial encounter for closed fracture; M97.02XA Periprosthetic fracture around internal prosthetic left hip joint, initial encounter; Y79.2 Prosthetic and other implants, materials and accessory orthopedic devices associated with adverse incidents; K21.9 Gastro-esophageal reflux disease without esophagitis; E78.5 Hyperlipidemia, unspecified; F32.A Depression, unspecified; D64.9 Anemia, unspecified; D72.829 Elevated white blood cell count, unspecified; Z96.652 Presence of left artificial knee joint; Z85.048 Personal history of other malignant neoplasm of rectum, rectosigmoid junction, and anus; Z86.73 Personal history of transient ischemic attack (TIA), and cerebral infarction without residual deficits; Z79.899 Other long term (current) drug therapy; X50.1XXA Overexertion from prolonged static or awkward postures, initial encounter
CPT/HCPCS: 27265; 72192; 73501; 73502; 80053; 85025; 85652; 86140; 86850; 86900; 86901; 93005; 96374; 96375; 99152; 99285

== ENCOUNTER → 2025-04-02 15:58 | Outpatient (REF) | payer MEDICARE, SELFPAY | LOC: WDC 15:58 | PROVIDERS: ATTENDING PHYSICIAN Obstetrics & Gynecology; FAMILY PHYSICIAN Internal Medicine | DX: Z12.31 Encounter for screening mammogram for malignant neoplasm of breast (principal) | CPT/HCPCS: 77063; 77067 ==